=== PATIENT | female | born 1940 | race Caucasian/White ===

== ENCOUNTER → 2017-02-15 | Outpatient (CLI) | payer MEDICARE ==
--- NOTE | 2017-02-15 13:48 | WOMENS IMAGING REPORT ---
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 TECHNIQUE: Dual-Energy X-ray Absorptiometry (DEXA) of the AP Spine and Hip. LIMITATIONS: None. FINDINGS: LUMBAR SPINE: The bone mineral density (BMD) measured from L1-L4 in the AP projection correlates with a T-score of -1.2, which is osteopenia as defined by the World Health Organization. HIP: The bone mineral density (BMD) measured in the left hip correlates with a T-score of -2.4, which is o steopenia as defined by the World Health Organization. IMPRESSION: 1. LUMBAR SPINE: Osteopenia 2. HIP: Osteopenia COMMENT: The World Health Organization defines low BMD as follows: T-score: Normal: Greater than -1.0 Osteopenia: Between -1.0 and -2.5 Osteoporosis: Less than -2.5 without fractures Established osteoporosis: Less than -2.5 with fractures In general, you may wish to consider: Diagnosis Treatment Follow-up DEXA Normal BMD Prevention 2-3 years Osteopenia Prevention/Therapy 1-2 years Osteoporosis Therapy Yearly TECHNICAL DOCUMENTATION: JOB ID: [id number] [email or web address]- All Rights Reserved
== END ==
LOC: WI 13:02
PROVIDERS: ATTEND Student in an Organized Health Care Education/Training Program
DX: M81.8 Other osteoporosis without current pathological fracture (principal); M85.88 Other specified disorders of bone density and structure, other site
CPT/HCPCS: 77080

== ENCOUNTER 2017-05-05 08:07 | Day surgery (SDC) | payer MEDICARE ==
[~2017-05-05 08:07] MED LIST: CHONDR SU A NA/HYALUR INTRAOC KIT (SURGICARE) ONE; EPINEPHRINE INJ/PF 1 MG/1 ML AMPULE ONE; KETOROLAC TROMETHAMINE 0.45% 4 DROP/0.4 ML DROPERETTE OD PRN; LIDOCAINE 1% INJ-PF (10 MG/ML) 30 ML SDV ONE; TOBRAMYCIN SULFATE/DEXAMETH OPH OINTMENT 3.5 GM ONE
[2017-05-05] MEDS: TROPICAMIDE 1% OPH SOLN 3 ML OD PRN ×3 (08:28→08:57)
[2017-05-05] MEDS: CYCLOPENTOLATE 0.2%/PHENYLEPHRINE 1% OPH SOLN 2 ML OD PRN ×3 (08:28→08:57)
[2017-05-05] MEDS: BESIFLOXACIN HCL 0.6% OPH SUSP 5 ML BOTTLE OD PRN ×3 (08:29→09:28)
[2017-05-05] MEDS: TETRACAINE HCL 0.5% OPH SOLN 0.6 ML DROPERETTE OD PRN ×3 (08:30→09:07)
[2017-05-05] MEDS ORDERED: MIDAZOLAM 2 MG/2 ML INJ ONE ×2 (08:53→09:11)
== END 2017-05-05 10:08 | disposition home or self-care (01) ==
LOC: SC 08:07
PROVIDERS: ATTEND Ophthalmology
PROC: 089230Z Drainage of Right Anterior Chamber with Drainage Device, Percutaneous Approach (ICD-10-PCS; 2017-05-05)
PROC: 08RJ3JZ Replacement of Right Lens with Synthetic Substitute, Percutaneous Approach (ICD-10-PCS; principal; 2017-05-05 09:00)
DX: H25.11 Age-related nuclear cataract, right eye (principal); Z79.899 Other long term (current) drug therapy; M19.90 Unspecified osteoarthritis, unspecified site; H40.1132 Primary open-angle glaucoma, bilateral, moderate stage; F41.9 Anxiety disorder, unspecified; F32.9 Major depressive disorder, single episode, unspecified
CPT/HCPCS: 0191T; 66984; 142; C1783; J0171; J2250; J3490; V2630

== ENCOUNTER 2017-05-19 07:23 | Day surgery (SDC) | payer MEDICARE ==
[~2017-05-19 07:23] MED LIST changes: -CHONDR SU A NA/HYALUR INTRAOC KIT (SURGICARE) ONE; -EPINEPHRINE INJ/PF 1 MG/1 ML AMPULE ONE; -KETOROLAC TROMETHAMINE 0.45% 4 DROP/0.4 ML DROPERETTE OD PRN; +KETOROLAC TROMETHAMINE 0.45% 4 DROP/0.4 ML DROPERETTE OS PRN; -LIDOCAINE 1% INJ-PF (10 MG/ML) 30 ML SDV ONE; -TOBRAMYCIN SULFATE/DEXAMETH OPH OINTMENT 3.5 GM ONE
[2017-05-19] MEDS ORDERED: EPINEPHRINE INJ/PF 1 MG/1 ML AMPULE ONE (07:37)
[2017-05-19] MEDS ORDERED: TOBRAMYCIN SULFATE/DEXAMETH OPH OINTMENT 3.5 GM ONE (07:37)
[2017-05-19] MEDS ORDERED: CHONDR SU A NA/HYALUR INTRAOC KIT (SURGICARE) ONE (07:38)
[2017-05-19] MEDS ORDERED: LIDOCAINE 1% INJ-PF (10 MG/ML) 30 ML SDV ONE (07:38)
[2017-05-19] MEDS: TETRACAINE HCL 0.5% OPH SOLN 0.6 ML DROPERETTE OS PRN ×3 (07:44→08:19)
[2017-05-19] MEDS: TROPICAMIDE 1% OPH SOLN 3 ML OS PRN ×3 (07:45→08:10)
[2017-05-19] MEDS: CYCLOPENTOLATE 0.2%/PHENYLEPHRINE 1% OPH SOLN 2 ML OS PRN ×3 (07:45→08:10)
[2017-05-19] MEDS: BESIFLOXACIN HCL 0.6% OPH SUSP 5 ML BOTTLE OS PRN ×3 (07:46→08:40)
[2017-05-19] MEDS ORDERED: FENTANYL CITRATE INJ/PF 100 MCG/2 ML AMPUL ONE (08:00)
[2017-05-19] MEDS ORDERED: MIDAZOLAM 2 MG/2 ML INJ ONE (08:00)
== END 2017-05-19 09:35 | disposition home or self-care (01) ==
LOC: SC 07:23
PROVIDERS: ATTEND Ophthalmology
PROC: 089330Z Drainage of Left Anterior Chamber with Drainage Device, Percutaneous Approach (ICD-10-PCS; 2017-05-19)
PROC: 08RK3JZ Replacement of Left Lens with Synthetic Substitute, Percutaneous Approach (ICD-10-PCS; principal; 2017-05-19 08:15)
DX: H25.12 Age-related nuclear cataract, left eye (principal); H40.1122 Primary open-angle glaucoma, left eye, moderate stage; M19.90 Unspecified osteoarthritis, unspecified site; F32.9 Major depressive disorder, single episode, unspecified; F41.9 Anxiety disorder, unspecified; M62.838 Other muscle spasm; Z79.899 Other long term (current) drug therapy; Z79.891 Long term (current) use of opiate analgesic; Z98.41 Cataract extraction status, right eye
CPT/HCPCS: 0191T; 66984; 142; C1783; J0171; J2250; J3010; J3490; V2630

== ENCOUNTER 2017-12-03 07:25 | Emergency (ER) | payer MEDICARE ==
--- NOTE | 2017-12-03 08:02 | ER Document Report ---
ED Extremity Problem, Upper - General Chief Complaint: Shoulder Injury Stated Complaint: LEFT SHOULDER PAIN Time Seen by Provider: 12/03/17 07:47 Mode of Arrival: Stretcher Notes: History of present illness-77 years old female who woke up this morning around 6 :00 was trying to get out of the bed and slipped and injured her left shoulder as well as right foot and left big toe. Did not fall to the ground. There were no head injury or loss of consciousness. Denies any neck pain neck stiffness. Denies any chest pain or chest injury. Denies any abdominal pain. Since the fall she could not move her left shoulder. Therefore EMS was called. EMS found her shoulder being dislocated anteriorly. They splinted her. On route was given total of 150 mg of fentanyl. On arrival she was drowsy and sleeping. Not in acute pain or distress. REVIEW OF SYSTEMS: CONSTITUTIONAL : Denies fever, chills, or sweats. Denies recent illness. EENT: Denies eye, ear, throat, or mouth pain or symptoms. Denies nasal or sinus congestion or discharge. Denies throat, tongue, or mouth swelling or difficulty swallowing. CARDIOVASCULAR: Denies chest pain. Denies palpitations or racing or irregular heart beat. Denies ankle edema. RESPIRATORY: Denies cough, cold, or chest congestion. Denies shortness of breath, difficulty breathing, or wheezing. GASTROINTESTINAL: Denies abdominal pain or distention. Denies nausea, vomiting , or diarrhea. Denies blood in vomitus, stools, or per rectum. Denies black, tarry stools. Denies constipation. GENITOURINARY: Denies difficulty urinating, painful urination, burning, frequency, blood in urine, or discharge. FEMALE GENITOURINARY: Denies vaginal bleeding, heavy or abnormal periods, irregular periods. Denies vaginal discharge or odor. MUSCULOSKELETAL: Denies back or neck pain or stiffness. Denies joint pain or swelling. SKIN: Denies rash, lesions or sores. HEMATOLOGIC : Denies easy bruising or bleeding. LYMPHATIC: Denies swollen, enlarged glands. NEUROLOGICAL: Denies confusion or altered mental status. Denies passing out or loss of consciousness. Denies dizziness or lightheadedness. Denies headache. Denies weakness or paralysis or loss of use of either side. Denies problems with gait or speech. Denies sensory loss, numbness, or tingling. Denies seizures. PSYCHIATRIC: Denies anxiety or stress. Denies depression, suicidal ideation, or homicidal ideation. ALL OTHER SYSTEMS REVIEWED AND NEGATIVE. PHYSICAL EXAMINATION: GENERAL: Well-appearing, well-nourished HEAD: Atraumatic, normocephalic. EYES: Pupils equal round and reactive to light, extraocular movements intact, conjunctiva are normal. ENT: Nares patent, oropharynx clear without exudates. Moist mucous membranes. No tenderness over the cervical spine. NECK: Normal range of motion, supple without lymphadenopathy LUNGS: Breath sounds clear to auscultation bilaterally and equal. No wheezes rales or rhonchi. HEART: Regular rate and rhythm without murmurs ABDOMEN: Soft, nontender, nondistended abdomen. No guarding, no rebound. No masses appreciated. Female : deferred Musculoskeletal: Right shoulder shows humeral head sitting just anterior to the shoulder joint. Which was tender on palpation even though she is drowsy. Right foot mid portion shows bluish black discoloration and tenderness. Left big toe has bluish discoloration and tender on palpation. Left knee has minor abrasion but able to flex and extend without discomfort. Ankles were normal no swelling or injury noted. No obvious injury to the hip noted she was able to flex and extend. NEUROLOGICAL: Cranial nerves grossly intact. Normal speech, normal gait. Normal sensory, motor exams PSYCH: Normal mood, normal affect. SKIN: Warm, Dry, normal turgor, no rashes or lesions noted. Dictation was performed using [employer] voice recognition software history of present illness- TRAVEL OUTSIDE OF THE [place] IN LAST 30 DAYS: No - HPI Patient complains to provider of: Injury, Pain, Shoulder Onset: Just prior to arrival Recent injury: Yes Where: Home, Indoors Severity of pain: Moderate Pain Level: 3 Context: Fall Associated symptoms: denies: None, Back pain, Chest pain/discomfort, Chills, Dizziness, Fainted, Fever, Hurts to breathe, Jaw pain, Nausea, Neck pain, Numbness, Seizure, Short of breath, Sweating, Tingling, Vomiting, Other Exacerbated by: denies: Nothing, Movement, Exertion Similar symptoms previously: No Recently seen / treated by doctor: No - Related Data Allergies/Adverse Reactions: No Known Allergies Allergy (Verified 12/03/17 07:40) Past Medical History - Social History Smoking Status: Never Smoker Cigarette use (# per day): No Chew tobacco use (# tins/day): No Frequency of alcohol use: Rare Drug Abuse: denies: None, Bath salts, Cocaine, Heroin, Marijuana, Methamphetamine, Prescription drugs, Other Lives with: Family Family History: denies: None, Reviewed & Not Pertinent, Arthritis, CAD, COPD, CVA, DM, Hyperlipidemia, Hypertension, Malignancy, Thyroid Disfunction, Other - Past Medical History Cardiac Medical History: Denies: Hx Heart Attack, Hx Hypertension Pulmonary Medical History: Denies: Hx Asthma Neurological Medical History: Denies: Hx Cerebrovascular Accident, Hx Seizures GI Medical History: Denies: Hx Hepatitis, Hx Hiatal Hernia, Hx Ulcer Infectious Medical History: Denies: Hx Hepatitis Past Surgical History: Denies: Hx Hysterectomy, Hx Mastectomy, Hx Open Heart Surgery, Hx Pacemaker Review of Systems - Review of Systems Constitutional: denies: No symptoms reported, See HPI, Chills, Diaphoresis, Fever, Malaise, Weakness, Other, Weight gain, Weight loss, Recent illness EENT: denies: No symptoms reported, See HPI, Eye pain, Eye discharge, Blurred vision, Tearing, Double vision, Ear pain, Ear discharge, Nose pain, Nose congestion, Nose discharge, Sinus pressure, Sinus discharge, Throat pain, Difficulty swallowing, Throat swelling, Mouth pain, Mouth swelling, Dental problem, Vertigo, Other Cardiovascular: denies: No symptoms reported, See HPI, Chest pain, Palpitations , Heart racing, Orthopnea, Dyspnea, Syncope, Dizziness, Lightheaded, Edema, Other, Paroxysmal Nocturnal Dysp Respiratory: denies: No symptoms reported, See HPI, Cough, Hurts to breathe, Hemoptysis, Short of breath, Sputum, Stridor, Wheezing, Other Gastrointestinal: denies: No symptoms reported, See HPI, Abdomen distended, Abdominal pain, Diarrhea, Nausea, Vomiting, Constipation, Blood streaked bowels , Poor appetite, Poor fluid intake, Blood in vomit, Black stools, Rectal bleeding, Last bowel movement, Fecal incontinence, Other Genitourinary: denies: No symptoms reported, See HPI, Burning, Dysuria, Discharge, Frequency, Flank pain, Hematuria, Incontinence, Pain, Urgency, Retention, Other Musculoskeletal: See HPI Skin: denies: No symptoms reported, See HPI, Change in color, Change in hair/ nails, Dryness, Lesions, Lumps, Rash, Other Physical Exam - Vital signs Vitals: Temp Pulse Resp BP Pulse Ox 98.3 F 72 16 160/86 H 99 12/03/17 07:34 12/03/17 07:34 12/03/17 07:34 12/03/17 07:34 12/03/17 07:34 - Notes Notes: Dictated Course - Vital Signs Vital signs: Temp Pulse Resp BP Pulse Ox 98.3 F 72 16 160/86 H 99 12/03/17 07:34 12/03/17 07:34 12/03/17 07:34 12/03/17 07:34 12/03/17 07:34 - Diagnostic Test Radiology reviewed: Reports reviewed - X-ray of the shoulder after reduction was reported by radiologist as normal Left toe shows proximal phalangeal fracture Right foot normal x-ray reported by radiologist Procedures - Joint Reduction/Fracture Care Left Shoulder Time completed: 07:15 Consent obtained: No - Emergent Conscious sedation: No Pre-procedure NV exam: No Fracture: Other - No fractures Manipulation comment: Externally rotated flexed abducted and extended. The shoulder was in Post-procedure NV exam: Yes Post-reduction x-ray: Joint reduced - Left shoulder reduction. Patient was relaxed by 150 mg of fentanyl given by the EMS. On arrival there was slight prominence of the left shoulder therefore the shoulder was abducted and rotated. Shoulder joint fell into the joint cavity completely without any complication. Complications: No Discharge - Discharge Clinical Impression: Shoulder dislocation Qualifiers: Encounter type: initial encounter Laterality: left Qualified Code(s): S43.005A - Unspecified dislocation of left shoulder joint, initial encounter Fracture of toe of left foot Qualifiers: Encounter type: initial encounter Toe: great toe Fracture type: closed Phalanx : proximal Fracture alignment: nondisplaced Qualified Code(s): S92.415A - Nondisplaced fracture of proximal phalanx of left great toe, initial encounter for closed fracture Contusion of foot, right Qualifiers: Encounter type: initial encounter Qualified Code(s): S90.31XA - Contusion of right foot, initial encounter Condition: Fair Disposition: HOME, SELF-CARE Instructions: Oral Narcotic Medication ([facility]), Shoulder Dislocation ([facility]) Prescriptions: Hydrocodone/Acetaminophen [Vicodin 5-300 mg Tablet] 1 each PO Q6HP PRN #20 tablet PRN Reason: Referrals: MATTHEW ALSTON, DO [Primary Care Provider] - Follow up as needed
--- NOTE | 2017-12-03 08:44 | RADIOLOGY REPORT (SQ) ---
EXAM DESCRIPTION: FOOT RIGHT 2 VIEWS COMPLETED DATE/TIME: 12/03/2017 8:24 am REASON FOR STUDY: Pain and injury COMPARISON: None. NUMBER OF VIEWS: Three views. TECHNIQUE: AP, lateral and oblique radiographic images acquired of the right foot. LIMITATIONS: None. FINDINGS: MINERALIZATION: Osteopenia. BONES: No acute fracture or dislocation. No worrisome bone lesions. JOINTS: No effusions. SOFT TISSUES: No soft tissue swelling. No foreign body. OTHER: No other significant finding. IMPRESSION: NEGATIVE STUDY OF THE RIGHT FOOT. NO RADIOGRAPHIC EVIDENCE OF ACUTE INJURY. TECHNICAL DOCUMENTATION: JOB ID: [id number] [employer]- All Rights Reserved Reading location - IP/workstation name: [email or web address]
--- NOTE | 2017-12-03 08:45 | RADIOLOGY REPORT (SQ) ---
EXAM DESCRIPTION: TOE LEFT COMPLETED DATE/TIME: 12/03/2017 8:24 am REASON FOR STUDY: Pain and injury COMPARISON: None. NUMBER OF VIEWS: Three views. TECHNIQUE: AP, lateral, and oblique images acquired of the left great toe LIMITATIONS: None. FINDINGS: MINERALIZATION: Osteopenia BONES: Nondisplaced fracture of the base of the distal phalanx of the great toe without articular ext ension JOINTS: No effusions. SOFT TISSUES: No soft tissue swelling. No foreign body. OTHER: No other significant finding. IMPRESSION: Nondisplaced fracture base of the distal phalanx great toe COMMENT: SITE OF TRAUMA/COMPLAINT MARKED/STAMP COMPLETED: None TECHNICAL DOCUMENTATION: JOB ID: [id number] [employer]- All Rights Reserved Reading location - IP/workstation name: [email or web address]
--- NOTE | 2017-12-03 08:46 | RADIOLOGY REPORT (SQ) ---
EXAM DESCRIPTION: SHOULDER LEFT 2 OR MORE VIEWS COMPLETED DATE/TIME: 12/03/2017 8:24 am REASON FOR STUDY: Dislocation COMPARISON: None. NUMBER OF VIEWS: Two views. TECHNIQUE: Internal and Y-view images acquired of the left shoulder. LIMITATIONS: None. FINDINGS: MINERALIZATION: Normal. BONES: No acute fracture or dislocation. No worrisome bone lesions. JOINTS: No dislocation. VISUALIZED LUNGS AND RIBS: No pneumothorax. No rib fracture. SOFT TISSUES: No radiopaque foreign body. OTHER: No other significant finding. IMPRESSION: NEGATIVE STUDY OF THE LEFT SHOULDER. NO RADIOGRAPHIC EVIDENCE OF ACUTE INJURY. TECHNICAL DOCUMENTATION: JOB ID: [id number] [employer]- All Rights Reserved Reading location - IP/workstation name: [email or web address]
[2017-12-03] MEDS ORDERED: HYDROCODONE/ACETAMINOPHEN 10-325 MG TABLET PO ONE (10:15)
[2017-12-03 10:58] VITALS: BP 156/78
== END 2017-12-03 11:02 | disposition home or self-care (01) ==
LOC: ER 07:25
PROC: 0RSKXZZ Reposition Left Shoulder Joint, External Approach (ICD-10-PCS; principal; 2017-12-03)
DX: S43.005A Unspecified dislocation of left shoulder joint, initial encounter (principal); S92.415A Nondisplaced fracture of proximal phalanx of left great toe, initial encounter for closed fracture; S90.31XA Contusion of right foot, initial encounter; W06.XXXA Fall from bed, initial encounter
CPT/HCPCS: 99284; 73620; 73030; 73660; 23650; L3650; A9270

== ENCOUNTER 2017-12-04 13:07 | Emergency (ER) | payer MEDICARE ==
--- NOTE | 2017-12-04 13:50 | ER Document Report ---
ED General - General Chief Complaint: Shoulder Pain Stated Complaint: SHOULDER INJURY Time Seen by Provider: 12/04/17 13:43 Mode of Arrival: Wheelchair Information source: Patient TRAVEL OUTSIDE OF THE [place] IN LAST 30 DAYS: No - HPI Onset: Yesterday Onset/Duration: Persistent Severity: Severe Pain Level: 5 Associated symptoms: None Exacerbated by: Movement Relieved by: Denies Similar symptoms previously: Yes Recently seen / treated by doctor: Yes - Related Data Allergies/Adverse Reactions: No Known Allergies Allergy (Verified 12/04/17 13:08) Past Medical History - General Information source: Patient - Social History Smoking Status: Unknown if Ever Smoked Cigarette use (# per day): No Frequency of alcohol use: None Drug Abuse: None Lives with: Family Family History: Other - hernia Patient has suicidal ideation: No Patient has homicidal ideation: No - Past Medical History Cardiac Medical History: Denies: Hx Heart Attack, Hx Hypertension Pulmonary Medical History: Denies: Hx Asthma Neurological Medical History: Denies: Hx Cerebrovascular Accident, Hx Seizures Renal/ Medical History: Denies: Hx Peritoneal Dialysis GI Medical History: Denies: Hx Hepatitis, Hx Hiatal Hernia, Hx Ulcer Musculoskeltal Medical History: Reports Hx Arthritis Infectious Medical History: Denies: Hx Hepatitis Past Surgical History: Reports: Hx Tonsillectomy. Denies: Hx Hysterectomy, Hx Mastectomy, Hx Open Heart Surgery, Hx Pacemaker Physical Exam - Extremities General upper extremity: Nontender Shoulder: Other - left clavicle ttp, ecchymosis
--- NOTE | 2017-12-04 14:26 | RADIOLOGY REPORT (SQ) ---
EXAM DESCRIPTION: CLAVICLE LEFT COMPLETED DATE/TIME: 12/04/2017 2:12 pm REASON FOR STUDY: history of dislocation, pain COMPARISON: None. NUMBER OF VIEWS: Two views. TECHNIQUE: Frontal and angled images were acquired of the left clavicle. LIMITATIONS: None. FINDINGS: MINERALIZATION: Normal. BONES: Acute fracture left mid 3rd clavicle, with over riding of fracture fragments by 2 cm. Visualized left scapula, humeral head, left upper ribs are intact. SOFT TISSUES: No obvious swelling or foreign body. OTHER: No other significant finding. IMPRESSION: Acute fracture left mid 3rd clavicle. TECHNICAL DOCUMENTATION: JOB ID: [id number] [employer]- All Rights Reserved Reading location - IP/workstation name: [email or web address]
--- NOTE | 2017-12-04 15:18 | ER Document Report ---
ED Medical Screen (RME) - General Chief Complaint: Shoulder Pain Stated Complaint: SHOULDER INJURY Time Seen by Provider: 12/04/17 13:43 Mode of Arrival: Wheelchair Information source: Patient Notes: pt presents to the ed with left clavicle pain, reports fall off bed yesterday, was evaluated in the ed and discharged home. today she hit her shoulder and now it hurts. xray yesterday negative. TRAVEL OUTSIDE OF THE [place] IN LAST 30 DAYS: No - Related Data Allergies/Adverse Reactions: No Known Allergies Allergy (Verified 12/04/17 13:08) Past Medical History - Social History Cigarette use (# per day): No Frequency of alcohol use: None Drug Abuse: None - Past Medical History Cardiac Medical History: Denies: Hx Heart Attack, Hx Hypertension Pulmonary Medical History: Denies: Hx Asthma Neurological Medical History: Denies: Hx Cerebrovascular Accident, Hx Seizures Renal/ Medical History: Denies: Hx Peritoneal Dialysis GI Medical History: Denies: Hx Hepatitis, Hx Hiatal Hernia, Hx Ulcer Musculoskeltal Medical History: Reports Hx Arthritis Infectious Medical History: Denies: Hx Hepatitis Past Surgical History: Reports: Hx Tonsillectomy. Denies: Hx Hysterectomy, Hx Mastectomy, Hx Open Heart Surgery, Hx Pacemaker Doctor's Discharge - Discharge Referrals: MATTHEW ALSTON DO [Primary Care Provider] - Follow up as needed
--- NOTE | 2017-12-04 15:21 | ER Document Report ---
ED General - General Chief Complaint: Shoulder Pain Stated Complaint: SHOULDER INJURY Time Seen by Provider: 12/04/17 13:43 Mode of Arrival: Ambulatory Information source: Patient Notes: 77-year-old female with history of osteoarthritis present with complaint of left clavicle and shoulder pain. Patient was seen yesterday in the emergency department after a fall out of her bed. At that time she was found to have a left shoulder dislocation. Patient had a successful reduction and post- reduction films which showed proper alignment. Patient states today she was walking when she hit her shoulder against the wall. She states at that time she had a severe burning pain along her left clavicle. She denies any new falls. She has been taking Bison for pain without relief. Patient is not currently in the sling that she was provided yesterday. TRAVEL OUTSIDE OF THE [place] IN LAST 30 DAYS: No - HPI Onset: Just prior to arrival Onset/Duration: Sudden Quality of pain: Burning, Throbbing Severity: Moderate Associated symptoms: None Exacerbated by: Movement Relieved by: Remaining still Similar symptoms previously: Yes Recently seen / treated by doctor: Yes - 12/03/17 - Related Data Allergies/Adverse Reactions: No Known Allergies Allergy (Verified 12/04/17 13:08) Past Medical History - General Information source: Patient - Social History Smoking Status: Unknown if Ever Smoked Cigarette use (# per day): No Frequency of alcohol use: None Drug Abuse: None Lives with: Family Family History: Reviewed & Not Pertinent, Other - hernia Patient has suicidal ideation: No Patient has homicidal ideation: No - Past Medical History Cardiac Medical History: Denies: Hx Heart Attack, Hx Hypertension Pulmonary Medical History: Denies: Hx Asthma Neurological Medical History: Denies: Hx Cerebrovascular Accident, Hx Seizures Renal/ Medical History: Denies: Hx Peritoneal Dialysis GI Medical History: Denies: Hx Hepatitis, Hx Hiatal Hernia, Hx Ulcer Musculoskeltal Medical History: Reports Hx Arthritis Infectious Medical History: Denies: Hx Hepatitis Past Surgical History: Reports: Hx Tonsillectomy. Denies: Hx Hysterectomy, Hx Mastectomy, Hx Open Heart Surgery, Hx Pacemaker Review of Systems - Review of Systems Notes: Patient denies fever, chills, nausea, vomiting, headache, ear pain, sore throat , cough, chest pain, shortness of breath, abdominal pain, back pain, dysuria. Physical Exam - Vital signs Vitals: Temp Pulse BP Pulse Ox 98.0 F 100 137/81 H 94 12/04/17 13:35 12/04/17 13:35 12/04/17 13:35 12/04/17 13:35 Interpretation: Normal - Notes Notes: PHYSICAL EXAMINATION: GENERAL: Well-appearing, well-nourished and in no acute distress. HEAD: Atraumatic, normocephalic. EYES: Pupils equal round and reactive to light, extraocular movements intact, conjunctiva are normal. ENT: Nares patent, oropharynx clear without exudates. Moist mucous membranes. NECK: Normal range of motion, supple without lymphadenopathy LUNGS: Breath sounds clear to auscultation bilaterally and equal. No wheezes rales or rhonchi. HEART: Regular rate and rhythm without murmurs ABDOMEN: Soft, nontender, nondistended abdomen. No guarding, no rebound. No masses appreciated. Female : deferred Musculoskeletal: Left clavicle tender to palpation, overlying ecchymosis. Left shoulder minimal range of motion secondary to pain. Radial pulse intact. No neuro deficits. NEUROLOGICAL: Cranial nerves grossly intact. Normal speech, normal gait. Normal sensory, motor exams PSYCH: Normal mood, normal affect. SKIN: Warm, Dry, normal turgor, no rashes or lesions noted. Course - Re-evaluation Re-evalutation: Clavicle X-Ray 12/04/17 13:44 IMPRESSION: Acute fracture left mid 3rd clavicle. 12/04/17 15:20 77-year-old female with a history of osteoarthritis presents for the second time in 2 days with complaint of left shoulder pain. Patient states that yesterday she took "a couple of sleeping pills" and missed the bed causing her to fall over. She was seen in the emergency department at that time and found to have a left shoulder dislocation. This was reduced successfully and the patient was discharged home with a sling. Patient states this morning she "hit my shoulder against the wall". She denies any falls. She has been taking Bison for pain without improvement. X-ray of the left clavicle today shows a left mid third clavicle fracture with overriding fragments of 2 cm. 12/04/17 16:03 Dr. Nation made aware of patient. He is happy to see her in the office in the next 3-5 days. - Vital Signs Vital signs: Temp Pulse Resp BP Pulse Ox 98.0 F 100 137/81 H 94 12/04/17 13:35 12/04/17 13:35 12/04/17 13:35 12/04/17 13:35 - Diagnostic Test Radiology reviewed: Image reviewed, Reports reviewed Discharge - Discharge Clinical Impression: Closed left clavicular fracture Qualifiers: Encounter type: initial encounter Clavicle location: shaft Fracture alignment: displaced Qualified Code(s): S42.022A - Displaced fracture of shaft of left clavicle, initial encounter for closed fracture Condition: Good Disposition: HOME, SELF-CARE Instructions: Fractured Clavicle ([facility]) Additional Instructions: Please follow-up with Dr. Nation from orthopedic surgery in the next 3-5 days. His number is on your discharge instructions. He is aware of you and your injury. Follow up with your physician tomorrow for further care or return to the ED IMMEDIATELY if symptoms worsen or new concerns occur. If you cannot afford to follow up with your primary care physician a list of low cost clinics have been provided at the end of your discharge papers as well. Your x-rays today show a fracture of your left clavicle. Please continue to ice the area. Please continue to take her home medication of hydrocodone. Please do not take hydrocodone and clonazepam simultaneously. This could lead to respiratory depression and . Referrals: MATTHEW ALSTON DO [Primary Care Provider] - Follow up as needed VICKI NATION MD [ACTIVE STAFF] - Follow up as needed
[2017-12-04 16:27] VITALS: BP 137/81
== END 2017-12-04 16:27 | disposition home or self-care (01) ==
LOC: ER 13:07
DX: S42.022A Displaced fracture of shaft of left clavicle, initial encounter for closed fracture (principal); W22.01XA Walked into wall, initial encounter; Y93.01 Activity, walking, marching and hiking; S43.005D Unspecified dislocation of left shoulder joint, subsequent encounter; W06.XXXD Fall from bed, subsequent encounter; Z98.890 Other specified postprocedural states
CPT/HCPCS: 99283; 73000; L3650

== ENCOUNTER 2017-12-18 11:42 | Inpatient (IN) | payer MEDICARE ==
[2017-12-18] MEDS ORDERED: ONDANSETRON HCL INJ/PF 4 MG/2 ML SDV IV ONE (11:58)
[2017-12-18] MEDS ORDERED: FENTANYL CITRATE INJ/PF 100 MCG/2 ML AMPUL IV ONE (11:58)
--- NOTE | 2017-12-18 12:01 | ER Document Report ---
ED Medical Screen (RME) - General Chief Complaint: Abdominal Pain Stated Complaint: LEFT SIDE PAIN Time Seen by Provider: 12/18/17 11:57 Notes: RAPID MEDICAL EVALUATION DISCLOSURE I have seen this patient as part of a Rapid Medical Evaluation and, if applicable, placed any initially appropriate orders. The patient will be seen and fully evaluated, including a full history and physical exam, by a provider ( in Main ED or Fast Track) when a room becomes available. 77-year-old female here with complaints of left flank pain ongoing for the past 2 days. Pain is nonradiating, constant, described as waxing and waning. She does not have any nausea vomiting diarrhea hematuria dysuria frequency hesitancy however has noticed that her urine is abnormally darker than usual. She has also noticed some constipation over the past day or few and has had to take a stool softener to help with this. She denies any prior history of kidney stones colitis diverticulitis however went to an urgent care earlier this morning and was sent here for further evaluation. They did not perform any diagnostic workup at the urgent care. EXAM Mild left upper greater than lower quadrant TTP Moderate left flank TTP No CVA tenderness TRAVEL OUTSIDE OF THE [place] IN LAST 30 DAYS: No - Related Data Allergies/Adverse Reactions: No Known Allergies Allergy (Verified 12/18/17 11:59) Past Medical History - Social History Chew tobacco use (# tins/day): No Frequency of alcohol use: None Drug Abuse: None - Past Medical History Cardiac Medical History: Denies: Hx Heart Attack, Hx Hypertension Pulmonary Medical History: Denies: Hx Asthma Neurological Medical History: Denies: Hx Cerebrovascular Accident, Hx Seizures Renal/ Medical History: Denies: Hx Peritoneal Dialysis GI Medical History: Denies: Hx Hepatitis, Hx Hiatal Hernia, Hx Ulcer Musculoskeltal Medical History: Reports Hx Arthritis Infectious Medical History: Denies: Hx Hepatitis Past Surgical History: Reports: Hx Tonsillectomy. Denies: Hx Hysterectomy, Hx Mastectomy, Hx Open Heart Surgery, Hx Pacemaker Physical Exam - Vital signs Vitals: Temp Pulse Resp BP Pulse Ox 98.2 F 90 18 123/71 96 12/18/17 11:44 12/18/17 11:44 12/18/17 11:44 12/18/17 11:44 12/18/17 11:44 Course - Vital Signs Vital signs: Temp Pulse Resp BP Pulse Ox 98.2 F 90 18 123/71 96 12/18/17 11:44 12/18/17 11:44 12/18/17 11:44 12/18/17 11:44 12/18/17 11:44
[2017-12-18 12:54] LABS: APPEARANCE,URINE CLEAR; BILIRUBIN,URINE NEGATIVE (NEGATIVE); COLOR,URINE YELLOW; GLUCOSE, URINE NEGATIVE (NEGATIVE); KETONES,URINE NEGATIVE (NEGATIVE); LEUKOCYTE ESTERASE,URINE TRACE (NEGATIVE); NITRITE,URINE NEGATIVE (NEGATIVE); PROTEIN,URINE NEGATIVE (NEGATIVE); URINE SPECIFIC GRAVITY 1.012; UROBILINOGEN,URINE NEGATIVE mg/dL (<2.0)
[2017-12-18 13:00] LABS: ABSOLUTE BASOPHILS # (AUTO) 0.1 10^3/uL (0.0-0.2); ABSOLUTE LYMPHOCYTES (AUTO) 1.2 10^3/uL (0.5-4.7); ABSOLUTE NEUT (AUTO) 10.2 10^3/uL (1.7-8.2); BASOPHILS % (AUTO) 0.4 % (0-2); EOSINOPHILS % (AUTO) 0.1 % (0-6); HEMATOCRIT 41.7 % (36.0-47.0); LYMPHOCYTES % (AUTO) 9.7 % (13-45); MEAN CORPUSCULAR HGB CONC 33.5 g/dL (32.0-36.0); MEAN CORPUSCULAR VOLUME 96 fl (80-97); MONOCYTES % (AUTO) 8.2 % (3-13); PLATELET COUNT 300 10^3/uL (150-450); RED BLOOD COUNT 4.37 10^6/uL (3.72-5.28); RED CELL DISTRIBUTION WIDTH 13.2 % (11.5-14.0); SEGMENTED NEUTROPHILS % (AUTO) 81.6 % (42-78); TOTAL CELLS COUNTED % (AUTO) 100 %; WHITE BLOOD COUNT 12.5 10^3/uL (4.0-10.5)
[2017-12-18 13:26] LABS: ALANINE AMINOTRANSFERASE 24 U/L (9-52); ALBUMIN 4.6 g/dL (3.5-5.0); ALKALINE PHOSPHATASE 86 U/L (38-126); ANION GAP 10 (5-19); ASPARTATE AMINO TRANSFERASE 28 U/L (14-36); BILIRUBIN,DIRECT 0.3 mg/dL (0.0-0.4); BILIRUBIN,TOTAL 0.8 mg/dL (0.2-1.3); BLOOD UREA NITROGEN 19 mg/dL (7-20); CARBON DIOXIDE 34 mmol/L (22-30); CHLORIDE 98 mmol/L (98-107); GLUCOSE 125 mg/dL (75-110); POTASSIUM 4.2 mmol/L (3.6-5.0); SODIUM 141.5 mmol/L (137-145); TOTAL PROTEIN 8.2 g/dL (6.3-8.2)
--- NOTE | 2017-12-18 13:42 | RADIOLOGY REPORT (SQ) ---
EXAM DESCRIPTION: CT LTD RENAL STONE PROTOCOL ON COMPLETED DATE/TIME: 12/18/2017 1:27 pm REASON FOR STUDY: L flank pain; eval stone colitis diverticulitis COMPARISON: None. TECHNIQUE: CT scan of the abdomen and pelvis performed without intravenous or oral contrast. Images reviewed with lung, soft tissue, and bone windows. Reconstructed coronal and sagittal MPR images revi ewed. All images stored on PACS. All CT scanners at this facility use dose modulation, iterative reconstruction, and/or weight based d osing when appropriate to reduce radiation dose to as low as reasonably achievable (ALARA). [facility]: Dose Right [facility]: CareDose [facility]: Dose Right [facility]: Teradose 4D [facility]: [employer] RADIATION DOSE: mGy. LIMITATIONS: None. FINDINGS: LOWER CHEST: Cardiac enlargement. No parenchymal findings in the lungs. NON-CONTRASTED LIVER, SPLEEN, ADRENALS: 1.5 cm in the left lobe of the liver. Spleen and adrenal gla nds without significant findings. PANCREAS: No masses. No peripancreatic inflammatory changes. GALLBLADDER: No identified stones by CT criteria. No inflammatory changes to suggest cholecystitis. RIGHT KIDNEY AND URETER: No suspicious masses. Assessment limited by lack of IV contrast. No signif icant calcifications. No hydronephrosis. Large extra renal pelvis. LEFT KIDNEY AND URETER: No suspicious masses. Assessment limited by lack of IV contrast. No signifi cant calcifications. No hydronephrosis or hydroureter. AORTA AND RETROPERITONEUM: No aneurysm. No retroperitoneal masses or adenopathy. BOWEL AND PERITONEAL CAVITY: No obvious masses or inflammatory changes. No free fluid. Pericolonic f at stranding and edema along the mid descending colon associated with diverticular. Diverticulitis. No perforation or abscess. APPENDIX: Normal. PELVIS, BLADDER, AND ABDOMINAL WALL:No abnormal masses. No free fluid. Bladder normal. BONES: No significant findings. OTHER: No other significant finding. IMPRESSION: Descending colon diverticulitis. COMMENT: Quality ID # [id number]: Final reports with documentation of one or more dose reduction techniques (e.g., Automated exposure control, adjustment of the mA and/or kV according to patient size, use of iterative reconstruction technique) TECHNICAL DOCUMENTATION: JOB ID: [id number] [employer]- All Rights Reserved Reading location - IP/workstation name: [email or web address]
--- NOTE | 2017-12-18 13:51 | ER Document Report ---
ED GI/ - General Chief Complaint: Abdominal Pain Stated Complaint: LEFT SIDE PAIN Time Seen by Provider: 12/18/17 11:57 Notes: Patient says that she was awakened from sleep about 4 AM Wednesday morning with pain in her left flan. That pain is remained in that location constantly ever since. She has not had any nausea or vomiting or diarrhea. Has never had this pain before. Denies any fevers. Has not had any UTI symptoms and no blood in urine. No history of kidney stones. No difficulty breathing or shortness of breath. Had some "indigestion" in the upper anterior chest this morning but went away with some bicarbonate of soda. Has never had any abdominal surgeries. No history of any gastrointestinal diseases. TRAVEL OUTSIDE OF THE [place] IN LAST 30 DAYS: No - Related Data Allergies/Adverse Reactions: No Known Allergies Allergy (Verified 12/18/17 11:59) Past Medical History - Social History Smoking Status: Never Smoker Chew tobacco use (# tins/day): No Frequency of alcohol use: None Drug Abuse: None Family History: Reviewed & Not Pertinent, Other - hernia Patient has suicidal ideation: No Patient has homicidal ideation: No - Past Medical History Cardiac Medical History: Denies: Hx Heart Attack, Hx Hypertension Pulmonary Medical History: Denies: Hx Asthma Neurological Medical History: Denies: Hx Cerebrovascular Accident, Hx Seizures GI Medical History: Denies: Hx Hepatitis, Hx Hiatal Hernia, Hx Ulcer Musculoskeltal Medical History: Reports Hx Arthritis Infectious Medical History: Denies: Hx Hepatitis Past Surgical History: Reports: Hx Tonsillectomy. Denies: Hx Abdominal Surgery Review of Systems - Review of Systems Notes: REVIEW OF SYSTEMS: CONSTITUTIONAL : Denies fever. EENT: Denies eye, ear, nose or mouth or throat pain or other symptoms. CARDIOVASCULAR: Denies chest pain. RESPIRATORY: Denies cough, chest congestion, or shortness of breath. GASTROINTESTINAL: See HPI. GENITOURINARY: Denies difficulty or painful urinating, urinary frequency, blood in urine. MUSCULOSKELETAL: Denies back or neck pain. Denies joint pain or swelling. Patient fell December 03 and fractured her left clavicle for which she still wears a sling. She has seen orthopedist in follow-up. SKIN: Denies rash or skin lesions. NEUROLOGICAL: Denies LOC or altered mental status. Denies headache. Denies sensory loss or motor deficits. ALL OTHER SYSTEMS REVIEWED AND NEGATIVE. Physical Exam - Vital signs Vitals: Temp Pulse Resp BP Pulse Ox 98.2 F 90 18 123/71 96 12/18/17 11:44 12/18/17 11:44 12/18/17 11:44 12/18/17 11:44 12/18/17 11:44 Interpretation: Normal - Notes Notes: PHYSICAL EXAMINATION: GENERAL: Well-appearing, in no acute distress. Appears uncomfortable. HEAD: Atraumatic, normocephalic. EYES: Pupils equal round and reactive to light, extraocular movements intact. ENT: oropharynx clear without exudates. Moist mucous membranes. NECK: Normal range of motion, supple. LUNGS: Breath sounds clear and equal bilaterally. HEART: Regular rate and rhythm without murmurs. ABDOMEN: Soft, tender left lower quadrant and into the left flank. No guarding or rebound. No masses. BACK: No tenderness throughout entire back. EXTREMITIES: Normal range of motion without pain. Patient's left arm is in a sling and she has tenderness over the clavicle. NEUROLOGICAL: Normal speech, normal gait. Normal sensory, motor, and reflex exams. Awake, alert, and oriented x3. Cranial nerves normal. PSYCH: Normal mood, normal affect. SKIN: Warm, dry, no rashes. Course - Vital Signs Vital signs: Temp Pulse Resp BP Pulse Ox 98.2 F 90 18 123/71 96 12/18/17 11:44 12/18/17 11:44 12/18/17 11:44 12/18/17 11:44 12/18/17 11:44 - Laboratory Result Diagrams: 12/18/17 12:27 12/18/17 12:27 Laboratory results interpreted by me: 12/18/17 12/18/17 12/18/17 12:27 12:27 12:27 WBC 12.5 H Seg Neutrophils % 81.6 H Lymphocytes % 9.7 L Absolute Neutrophils 10.2 H Carbon Dioxide 34 H Est GFR (Non-Af Amer) 51 L Glucose 125 H Ur Leukocyte Esterase TRACE H - Diagnostic Test Radiology reviewed: Image reviewed, Reports reviewed - CT scan shows descending colon diverticulitis. Discharge - Discharge Clinical Impression: Diverticulitis Condition: Stable Disposition: ADMITTED INPATIENT Admitting Provider: Hospitalist Unit Admitted: Medical Floor
[2017-12-18] MEDS ORDERED: ACETAMINOPHEN 325 MG TABLET PO PRN (14:13)
[2017-12-18] MEDS ORDERED: PROMETHAZINE HCL INJ 25 MG/1 ML VIAL IV PRN (14:13)
[2017-12-18] MEDS ORDERED: ONDANSETRON HCL INJ/PF 4 MG/2 ML SDV IV PRN (14:13)
[2017-12-18] MEDS ORDERED: MAG HYDROX/AL HYDROX/SIMETH SUSP 30 ML UDCUP PO PRN (14:13)
[2017-12-18] MEDS ORDERED: MORPHINE SULFATE 10 MG/ML INJ IV PRN ×3 (14:21→14:42)
[2017-12-18] MEDS ORDERED: ACETAMINOPHEN PO PRN (14:41)
[2017-12-18] MEDS ORDERED: HYDROCODONE PO PRN (14:41)
[2017-12-18] MEDS ORDERED: HYDROCODONE/ACETAMINOPHEN 5-325 MG TABLET PO PRN (14:46)
[2017-12-18] MEDS: NORMAL SALINE 1000 ML 1,000 ML IV PRN (15:23)
[2017-12-18] MEDS ORDERED: MAGNESIUM HYDROXIDE SUSP 30 ML UDCUP PO PRN (16:47)
--- NOTE | 2017-12-18 16:49 | PDOC H&P ---
History of Present Illness Patient complains of: Left abdominal pain History of Present Illness: CE ARZOLA is a 77 year old female with a past medical history significant only for arthritis and recent left clavicle fracture presented to the emergency department today with a complaint of left abdominal pain for 2 days. She states that she felt well Mikael evening when she went to bed but woke suddenly at approximately 4 AM with sharp left-sided abdominal pain associated with urge to defecate. She reports that she has had the sensation of constipation but has been able to have loose bowel movements. She denies fever, chills, body aches, chest pain, palpitations, dyspnea, orthopnea, nausea and vomiting. Evaluation in the emergency department revealed mildly elevated leukocytosis ( 12.5), an elevated bicarb, and a CT of the abdomen revealing descending colon diverticulitis. She is referred to the hospitalist service for admission. Past Medical History Cardiac Medical History: Denies: Congestive Heart Failure, Coronary Artery Disease, Myocardial Infarction, Hyperlipidema, Hypertension, Peripheral Vascular Disease Pulmonary Medical History: Denies: Asthma, Chronic Obstructive Pulmonary Disease (COPD) EENT Medical History: Reports: Cataracts Neurological Medical History: Reports: None Denies: Ischemic CVA, Seizures Endocrine Medical History: Reports: None Renal/ Medical History: Reports: None Malignancy Medical History: Reports: None GI Medical History: Reports: None Denies: Hepatitis, Hiatal Hernia Musculoskeltal Medical History: Reports: Arthritis Skin Medical History: Reports: None Psychiatric Medical History: Reports: None Traumatic Medical History: Reports: None Hematology: Reports: None Denies: Anemia, Sickle Cell Disease Infectious Medical History: Reports: None Past Surgical History Past Surgical History: Reports: Tonsillectomy Denies: Amputation, Hysterectomy, Mastectomy, Pacemaker Social History Information Source: Patient Lives with: Spouse/Significant other Smoking Status: Never Smoker Frequency of Alcohol Use: Rare Hx Recreational Drug Use: No Drugs: None Hx Prescription Drug Abuse: No - Advance Directive Resuscitation Status: Full Code Surrogate healthcare decision maker:: The patient's , Sandip Arzola. Family History Family History: Reviewed & Not Pertinent, Malignancy - Colon cancer, Other - hernia Parental Family History Reviewed: Yes Children Family History Reviewed: Yes Sibling(s) Family History Reviewed.: Yes Medication/Allergy Home Medications: Calcium Phosphate Trib/Vit D3 [Calcium Adult Gummies] 2 each PO DAILY 04/30/17 Ergocalciferol (Vitamin D2) [Vitamin D] 400 unit PO DAILY 04/30/17 RX: Vitamin B Complex 1 each PO DAILY 04/30/17 RX: Clonazepam 0.5 mg PO QHS 05/05/17 Loratadine/Pseudoephedrine [Loratadine-D 24hr Tablet] 1 each PO QAM PRN Hydrocodone/Acetaminophen [Vicodin 5-300 mg Tablet] 1 each PO Q6HP PRN #20 tablet 12/03/17 RX: Magnesium [Magnesium Gluconate] 200 mg PO DAILY 12/18/17 RX: Potassium 99 mg PO DAILY 12/18/17 Allergies/Adverse Reactions: No Known Allergies Allergy (Verified 12/18/17 11:59) Review of Systems Constitutional: ABSENT: chills, fever(s), headache(s), weight gain, weight loss Eyes: ABSENT: visual disturbances Ears: ABSENT: hearing changes Cardiovascular: ABSENT: chest pain, dyspnea on exertion, edema, orthropnea, palpitations Respiratory: ABSENT: cough, hemoptysis Gastrointestinal: PRESENT: as per HPI, abdominal pain. ABSENT: constipation, diarrhea, hematemesis, hematochezia, nausea, vomiting Genitourinary: ABSENT: dysuria, hematuria Musculoskeletal: PRESENT: other - Left clavicle fracture. ABSENT: joint swelling Integumentary: ABSENT: rash, wounds Neurological: ABSENT: abnormal gait, abnormal speech, confusion, dizziness, focal weakness, syncope Psychiatric: ABSENT: anxiety, depression, homidical ideation, suicidal ideation Endocrine: ABSENT: cold intolerance, heat intolerance, polydipsia, polyuria Hematologic/Lymphatic: ABSENT: easy bleeding, easy bruising Physical Exam Vital Signs: Temp Pulse Resp BP Pulse Ox 98.2 F 90 18 123/71 96 12/18/17 11:44 12/18/17 11:44 12/18/17 11:44 12/18/17 11:44 12/18/17 11:44 Intake & Output 12/17/17 12/18/17 12/19/17 06:59 06:59 06:59 Weight 58.4 kg General appearance: PRESENT: no acute distress, cooperative, well-developed, well-nourished Head exam: PRESENT: atraumatic, normocephalic Eye exam: PRESENT: conjunctiva pink, EOMI, PERRLA. ABSENT: scleral icterus Ear exam: PRESENT: normal external ear exam Mouth exam: PRESENT: moist, tongue midline Neck exam: ABSENT: carotid bruit, JVD, lymphadenopathy, thyromegaly Respiratory exam: PRESENT: clear to auscultation albert, symmetrical, unlabored. ABSENT: rales, rhonchi, wheezes Cardiovascular exam: PRESENT: RRR, +S1, +S2. ABSENT: diastolic murmur, rubs, systolic murmur Pulses: PRESENT: normal dorsalis pedis pul Vascular exam: PRESENT: normal capillary refill GI/Abdominal exam: PRESENT: normal bowel sounds, soft, tenderness - Left upper and lower quadrants. ABSENT: distended, guarding, mass, organolmegaly, rebound Rectal exam: PRESENT: deferred Extremities exam: PRESENT: full ROM. ABSENT: calf tenderness, clubbing, pedal edema Musculoskeletal exam: PRESENT: tenderness - Left clavicle; recent fracture Neurological exam: PRESENT: alert, awake, oriented to person, oriented to place , oriented to time, oriented to situation, CN II-XII grossly intact. ABSENT: motor sensory deficit Psychiatric exam: PRESENT: appropriate affect, normal mood. ABSENT: homicidal ideation, suicidal ideation Skin exam: PRESENT: dry, intact, warm. ABSENT: cyanosis, rash Results Laboratory Results: 12/18/17 12:27 12/18/17 12:27 12/18/17 12/18/17 12/18/17 12:27 12:27 12:27 WBC 12.5 H RBC 4.37 Hgb 14.0 Hct 41.7 MCV 96 MCH 32.0 MCHC 33.5 RDW 13.2 Plt Count 300 Seg Neutrophils % 81.6 H Lymphocytes % 9.7 L Monocytes % 8.2 Eosinophils % 0.1 Basophils % 0.4 Absolute Neutrophils 10.2 H Absolute Lymphocytes 1.2 Absolute Monocytes 1.0 Absolute Eosinophils 0.0 Absolute Basophils 0.1 Sodium 141.5 Potassium 4.2 Chloride 98 Carbon Dioxide 34 H Anion Gap 10 BUN 19 Creatinine 1.05 Est GFR ( Amer) > 60 Est GFR (Non-Af Amer) 51 L Glucose 125 H Calcium 10.0 Total Bilirubin 0.8 AST 28 ALT 24 Alkaline Phosphatase 86 Total Protein 8.2 Albumin 4.6 Lipase 53.0 Urine Color YELLOW Urine Appearance CLEAR Urine pH 7.0 Ur Specific [place] 1.012 Urine Protein NEGATIVE Urine Glucose (UA) NEGATIVE Urine Ketones NEGATIVE Urine Blood NEGATIVE Urine Nitrite NEGATIVE Ur Leukocyte Esterase TRACE H Urine WBC (Auto) 0 Urine RBC (Auto) 1 Impressions: Limited or Localized CT 12/18/17 11:57 IMPRESSION: Descending colon diverticulitis. Assessment & Plan - Diagnosis (1) Diverticulitis Is this a current diagnosis for this admission?: Yes Plan: The patient is admitted with left upper and lower quadrant abdominal pain. WBCs are mildly elevated to 12.5 CT of the abdomen reveals descending colon diverticulitis. Blood cultures pending. The patient will be admitted to the medical floor. She will be empirically treated with IV Cipro and metronidazole. We will provide gentle IV maintenance fluids. She is placed on a clear liquid diet. Antiemetics as needed. Tylenol and [place] as needed for pain. Morphine is available for breakthrough pain. (2) Leukocytosis Qualifiers: Leukocytosis type: bandemia Qualified Code(s): D72.825 - Bandemia Is this a current diagnosis for this admission?: Yes Plan: Secondary to diverticulitis; plan as above. (3) Fracture of left clavicle Is this a current diagnosis for this admission?: Yes Plan: The patient fell approximately 3 weeks ago and sustained a left clavicle fracture. Tylenol and [place] are available with pain. Continue wearing sling. (4) Difficulty sleeping Is this a current diagnosis for this admission?: Yes Plan: We will continue the patient's home dose clonazepam 0.5 mg p.o. nightly as needed insomnia. Fall precautions are advised as the patient reports that her fall resulting in clavicle fracture was secondary to sleeping medications. (5) Constipation Is this a current diagnosis for this admission?: Yes Plan: The patient reports recent constipation; likely related to [place] use prescribed proximally 3 weeks ago for clavicle fracture. We will place the patient on daily Colace. Milk of magnesia for unresolved constipation. Encourage p.o. fluids and ambulation as tolerated. - Time Time Spent: 50 to 70 Minutes Medications reviewed and adjusted accordingly: Yes Anticipated discharge: Home Within: within 72 hours - Inpatient Certification Based on my medical assessment, after consideration of the patient's comorbidities, presenting symptoms, or acuity I expect that the services needed warrant INPATIENT care.: Yes I certify that my determination is in accordance with my understanding of Medicare's requirements for reasonable and necessary INPATIENT services [42 CFR 412.3e].: Yes Medical Necessity: Need For IV Fluids, Need for IV Antibiotics
[2017-12-18] MEDS: METRONIDAZOLE 500 MG/NS RTU 100 ML IV SCH (18:52)
[2017-12-18] MEDS ORDERED: (PENDING PHARMACY ID) (Clonazepam [Clonazepam] 0.5 MG) PO SCH (22:00)
[2017-12-18] MEDS: CIPROFLOXACIN 400 MG/D5W RTU 400 MG/200 ML RTUPB IV SCH (22:19)
[2017-12-18] MEDS: CLONAZEPAM 1 MG TABLET PO SCH (22:20)
[2017-12-18] MEDS: HEPARIN SOD (PORCINE) 5,000 UNIT/ML 1 ML SYRINGE SUBCUT SCH (22:23)
[2017-12-19] MEDS: METRONIDAZOLE 500 MG/NS RTU 100 ML IV SCH ×5 (01:09→23:34)
[2017-12-19 05:11] LABS: ABSOLUTE BASOPHILS # (AUTO) 0.1 10^3/uL (0.0-0.2); ABSOLUTE EOSINOPHILS # (AUTO) 0.1 10^3/uL (0.0-0.6); ABSOLUTE LYMPHOCYTES (AUTO) 1.8 10^3/uL (0.5-4.7); ABSOLUTE MONOCYTES (AUTO) 0.7 10^3/uL (0.1-1.4); ABSOLUTE NEUT (AUTO) 6.6 10^3/uL (1.7-8.2); BASOPHILS % (AUTO) 0.6 % (0-2); EOSINOPHILS % (AUTO) 1.3 % (0-6); HEMATOCRIT 36.3 % (36.0-47.0); HEMOGLOBIN 12.1 g/dL (12.0-15.5); MEAN CORPUSCULAR HEMOGLOBIN 31.8 pg (27.0-33.4); MEAN CORPUSCULAR HGB CONC 33.2 g/dL (32.0-36.0); MEAN CORPUSCULAR VOLUME 96 fl (80-97); PLATELET COUNT 242 10^3/uL (150-450); RED BLOOD COUNT 3.79 10^6/uL (3.72-5.28); SEGMENTED NEUTROPHILS % (AUTO) 71.1 % (42-78); TOTAL CELLS COUNTED % (AUTO) 100 %; WHITE BLOOD COUNT 9.3 10^3/uL (4.0-10.5)
[2017-12-19 05:36] LABS: ANION GAP 10 (5-19); BLOOD UREA NITROGEN 13 mg/dL (7-20); CALCIUM 9.1 mg/dL (8.4-10.2); CARBON DIOXIDE 29 mmol/L (22-30); CHLORIDE 106 mmol/L (98-107); GLUCOSE 98 mg/dL (75-110); POTASSIUM 4.9 mmol/L (3.6-5.0); SODIUM 144.6 mmol/L (137-145)
[2017-12-19] MEDS: HEPARIN SOD (PORCINE) 5,000 UNIT/ML 1 ML SYRINGE SUBCUT SCH ×3 (05:36→22:18)
[2017-12-19] MEDS ORDERED: PANTOPRAZOLE SODIUM 40 MG VIAL IV SCH (10:00)
[2017-12-19] MEDS ORDERED: (PENDING PHARMACY ID) (Ergocalciferol (Vitamin D2) [Vitamin D] 400 UNIT) PO SCH (10:00)
[2017-12-19] MEDS ORDERED: DOCUSATE SODIUM 100 MG CAPSULE PO SCH (10:00)
[2017-12-19] MEDS ORDERED: CHOLECALCIFEROL (D3) 400 UNIT TABLET PO SCH (10:00)
[2017-12-19] MEDS: CIPROFLOXACIN 400 MG/D5W RTU 400 MG/200 ML RTUPB IV SCH ×2 (10:07→22:18)
[2017-12-19] MEDS: NORMAL SALINE 1000 ML 1,000 ML IV PRN (10:08)
--- NOTE | 2017-12-19 11:11 | PDOC PROGRESS REPORT ---
Subjective Progress Note for:: 12/19/17 Subjective:: The patient is a 77-year-old female with past medical history significant only for arthritis and recent left clavicle fracture who was admitted 12/17/17 for descending colon diverticulitis. Patient is seen on morning rounds. She is found ambulating in her room on room air. She reports that her pain is improved and is now only feeling discomfort with palpation of her left flank or with certain activities such as sneezing. She reports that she tolerated her clear liquid diet and some applesauce last night without increased pain, nausea, vomiting, diarrhea. She has had a formed bowel movement this morning. She requests to advance her diet today. Anticipate possible discharge tomorrow. Reason For Visit: DIVERTICULITIS Physical Exam Vital Signs: Temp Pulse Resp BP Pulse Ox 98.5 F 67 16 119/75 97 12/19/17 07:23 12/19/17 07:23 12/19/17 07:23 12/19/17 07:23 12/19/17 07:23 Intake & Output 12/18/17 12/19/17 12/20/17 06:59 06:59 06:59 Intake Total 828 Balance 828 General appearance: PRESENT: no acute distress, cooperative, thin, well- developed, well-nourished Head exam: PRESENT: atraumatic, normocephalic Eye exam: PRESENT: conjunctiva pink, EOMI, PERRLA. ABSENT: scleral icterus Ear exam: PRESENT: normal external ear exam Mouth exam: PRESENT: moist, tongue midline Neck exam: ABSENT: carotid bruit, JVD, lymphadenopathy, thyromegaly Respiratory exam: PRESENT: clear to auscultation albert, symmetrical, unlabored. ABSENT: rales, rhonchi, wheezes Cardiovascular exam: PRESENT: RRR, +S1, +S2. ABSENT: diastolic murmur, rubs, systolic murmur Pulses: PRESENT: normal dorsalis pedis pul Vascular exam: PRESENT: normal capillary refill GI/Abdominal exam: PRESENT: normal bowel sounds, soft, tenderness - LUQ/LLQ w/ palpation. ABSENT: distended, guarding, mass, organolmegaly, rebound Rectal exam: PRESENT: deferred Extremities exam: PRESENT: full ROM. ABSENT: calf tenderness, clubbing, pedal edema Neurological exam: PRESENT: alert, awake, oriented to person, oriented to place , oriented to time, oriented to situation, CN II-XII grossly intact. ABSENT: motor sensory deficit Psychiatric exam: PRESENT: appropriate affect, normal mood. ABSENT: homicidal ideation, suicidal ideation Skin exam: PRESENT: dry, intact, warm. ABSENT: cyanosis, rash Results Laboratory Results: 12/19/17 04:55 12/19/17 04:55 12/19/17 12/19/17 04:55 04:55 WBC 9.3 RBC 3.79 Hgb 12.1 Hct 36.3 MCV 96 MCH 31.8 MCHC 33.2 RDW 13.0 Plt Count 242 Seg Neutrophils % 71.1 Lymphocytes % 19.0 Monocytes % 8.0 Eosinophils % 1.3 Basophils % 0.6 Absolute Neutrophils 6.6 Absolute Lymphocytes 1.8 Absolute Monocytes 0.7 Absolute Eosinophils 0.1 Absolute Basophils 0.1 Sodium 144.6 Potassium 4.9 Chloride 106 Carbon Dioxide 29 Anion Gap 10 BUN 13 Creatinine 0.98 Est GFR ( Amer) > 60 Est GFR (Non-Af Amer) 55 L Glucose 98 Calcium 9.1 Impressions: Limited or Localized CT 12/18/17 11:57 IMPRESSION: Descending colon diverticulitis. Assessment & Plan - Diagnosis (1) Diverticulitis Is this a current diagnosis for this admission?: Yes Plan: Improved; patient reports decrease in pain and is tolerating diet. Leukocytosis has resolved and she remains afebrile. CT of the abdomen reveals descending colon diverticulitis. Blood cultures pending. The patient will be admitted to the medical floor. She will be empirically treated with IV Cipro and metronidazole. We will provide gentle IV maintenance fluids. Will advance diet as tolerated. Antiemetics as needed. Tylenol and [place] as needed for pain. Morphine is available for breakthrough pain. (2) Leukocytosis Qualifiers: Leukocytosis type: bandemia Qualified Code(s): D72.825 - Bandemia Is this a current diagnosis for this admission?: Yes Plan: Resolved. Secondary to diverticulitis; plan as above. (3) Fracture of left clavicle Is this a current diagnosis for this admission?: Yes Plan: Stable. The patient fell approximately 3 weeks ago and sustained a left clavicle fracture. Tylenol and [place] are available with pain. Continue wearing sling. (4) Difficulty sleeping Is this a current diagnosis for this admission?: Yes Plan: We will continue the patient's home dose clonazepam 0.5 mg p.o. nightly as needed insomnia. Fall precautions are advised as the patient reports that her fall resulting in clavicle fracture was secondary to sleeping medications. (5) Constipation Is this a current diagnosis for this admission?: Yes Plan: Improved; positive bm today. The patient reports recent constipation; likely related to [place] use prescribed proximally 3 weeks ago for clavicle fracture. We will place the patient on daily Colace. Milk of magnesia for unresolved constipation. Encourage p.o. fluids and ambulation as tolerated. - Time Time Spent with patient: 15-24 minutes Medications reviewed and adjusted accordingly: Yes Anticipated discharge: Home Within: within 24 hours - Plan Summary Plan Summary: Anticipate d/c to home tomorrow on p.o. Cipro and Flagyl.
[2017-12-19] MEDS: CLONAZEPAM 1 MG TABLET PO SCH (22:17)
[2017-12-20 05:02] LABS: ABSOLUTE BASOPHILS # (AUTO) 0.1 10^3/uL (0.0-0.2); ABSOLUTE EOSINOPHILS # (AUTO) 0.2 10^3/uL (0.0-0.6); ABSOLUTE LYMPHOCYTES (AUTO) 2.1 10^3/uL (0.5-4.7); ABSOLUTE MONOCYTES (AUTO) 0.6 10^3/uL (0.1-1.4); ABSOLUTE NEUT (AUTO) 3.7 10^3/uL (1.7-8.2); BASOPHILS % (AUTO) 0.8 % (0-2); EOSINOPHILS % (AUTO) 2.9 % (0-6); HEMATOCRIT 34.9 % (36.0-47.0); HEMOGLOBIN 11.7 g/dL (12.0-15.5); LYMPHOCYTES % (AUTO) 30.9 % (13-45); MEAN CORPUSCULAR HEMOGLOBIN 31.8 pg (27.0-33.4); MEAN CORPUSCULAR HGB CONC 33.6 g/dL (32.0-36.0); MEAN CORPUSCULAR VOLUME 95 fl (80-97); MONOCYTES % (AUTO) 9.2 % (3-13); PLATELET COUNT 235 10^3/uL (150-450); RED BLOOD COUNT 3.69 10^6/uL (3.72-5.28); RED CELL DISTRIBUTION WIDTH 13.1 % (11.5-14.0); SEGMENTED NEUTROPHILS % (AUTO) 56.2 % (42-78); TOTAL CELLS COUNTED % (AUTO) 100 %; WHITE BLOOD COUNT 6.7 10^3/uL (4.0-10.5)
[2017-12-20 05:34] LABS: ANION GAP 11 (5-19); BLOOD UREA NITROGEN 14 mg/dL (7-20); CALCIUM 8.9 mg/dL (8.4-10.2); CARBON DIOXIDE 25 mmol/L (22-30); CHLORIDE 110 mmol/L (98-107); GLUCOSE 95 mg/dL (75-110); POTASSIUM 4.1 mmol/L (3.6-5.0); SODIUM 146.1 mmol/L (137-145)
[2017-12-20] MEDS: METRONIDAZOLE 500 MG/NS RTU 100 ML IV SCH (05:52)
[2017-12-20] MEDS: HEPARIN SOD (PORCINE) 5,000 UNIT/ML 1 ML SYRINGE SUBCUT SCH (05:54)
[2017-12-20 08:50] VITALS: BP 131/60
--- NOTE | 2017-12-20 12:32 | PDOC DISCHARGE SUMMARY ---
General - Admit/Disc Date/PCP Admission Date/Primary Care Provider: 12/18/17 15:46 MATTHEW ALSTON, Discharge Date: 12/20/17 - Discharge Diagnosis (1) Diverticulitis Is this a current diagnosis for this admission?: Yes Summary: The patient was admitted with report of LUQ/LLQ abdominal pain x 3 days and leukocytosis of 12.5. CT of the abdomen revealed descending colon diverticulitis. She was placed on IV Cipro and Metronidazole, gentle IV fluids, and a clear liquid diet. Her leukocytosis resolved and pain improved. She was advanced to a low-residue diet which she tolerated well. She did not require antiemetics or pain medications during her stay. At time of discharge, she is in stable condition and tolerating a low-residue diet with minimal abdominal discomfort. She is provided handouts on diverticulitis and dietary recommendations. She is provided prescriptions for Ciprofloxacin and Metronidazole. She is advised to follow up with her primary care provider within 1 week. (2) Leukocytosis Is this a current diagnosis for this admission?: Yes Summary: Resolved; secondary to diverticulitis. (3) Fracture of left clavicle Is this a current diagnosis for this admission?: Yes Summary: Secondary to fall at home on 12/04/17. Patient reported she felt it may have been due to "taking too many sleeping pills." Home medication list included hydrocodone, oxycodone, clonazepam, and ambien. At discharge, she is recommended to discontinue oxycodone and ambien. Recommend further dose reductions/discontinuation of medications at follow up appointment with primary care provider. (4) Difficulty sleeping Is this a current diagnosis for this admission?: Yes (5) Constipation Is this a current diagnosis for this admission?: Yes Summary: Resolved. Continue colace twice daily as needed. - Additional Information Resuscitation Status: Full Code Discharge Diet: Other (Comments) - Low residue Discharge Activity: Activity As Tolerated, Slowly Increase Activity Prescriptions: Ciprofloxacin HCl [Cipro 500 mg Tablet] 500 mg PO BID #18 tablet Metronidazole [Flagyl] 500 mg PO Q8H #27 tablet Home Medications: Bupropion HCl [Bupropion HCl Sr] 100 mg PO BIDP PRN 12/19/17 Clonazepam [Klonopin 1 mg Tablet] 2 mg PO QHS 12/19/17 Cholecalciferol (Vitamin D3) [Vitamin D3 400 Unit Tablet] 400 unit PO DAILY tablet 12/20/17 Ciprofloxacin HCl [Cipro 500 mg Tablet] 500 mg PO BID #18 tablet 12/20/17 Clonazepam [Klonopin 1 mg Tablet] 0.5 mg PO QHS tablet 12/20/17 Docusate Sodium [Colace 100 mg Capsule] 100 mg PO DAILY capsule 12/20/17 Hydrocodone/Acetaminophen [Ecorse 5-325 mg Tablet] 1 tab PO Q6HP PRN #0 tablet Metronidazole [Flagyl] 500 mg PO Q8H #27 tablet 12/20/17 History of Present Illness History of Present Illness: CE ARZOLA is a 77 year old female with a past medical history significant only for arthritis and recent left clavicle fracture presented to the emergency department today with a complaint of left abdominal pain for 2 days. She states that she felt well Mikael evening when she went to bed but woke suddenly at approximately 4 AM with sharp left-sided abdominal pain associated with urge to defecate. She reports that she has had the sensation of constipation but has been able to have loose bowel movements. She denies fever, chills, body aches, chest pain, palpitations, dyspnea, orthopnea, nausea and vomiting. Evaluation in the emergency department revealed mildly elevated leukocytosis ( 12.5), an elevated bicarb, and a CT of the abdomen revealing descending colon diverticulitis. She is referred to the hospitalist service for admission. Physical Exam Vital Signs: Temp Pulse Resp BP Pulse Ox 98.3 F 80 20 129/62 H 96 12/20/17 04:31 12/20/17 04:31 12/20/17 04:31 12/20/17 04:31 12/20/17 04:31 Intake & Output 12/19/17 12/20/17 12/21/17 06:59 06:59 06:59 Intake Total 828 3649 Balance 828 3649 Weight 58.8 kg General appearance: PRESENT: no acute distress, well-developed, well-nourished Head exam: PRESENT: atraumatic, normocephalic Eye exam: PRESENT: conjunctiva pink, EOMI, PERRLA. ABSENT: scleral icterus Ear exam: PRESENT: normal external ear exam Mouth exam: PRESENT: moist, tongue midline Neck exam: ABSENT: carotid bruit, JVD, lymphadenopathy, thyromegaly Respiratory exam: PRESENT: clear to auscultation albert, symmetrical, unlabored. ABSENT: rales, rhonchi, wheezes Cardiovascular exam: PRESENT: RRR, +S1, +S2. ABSENT: diastolic murmur, rubs, systolic murmur Pulses: PRESENT: normal dorsalis pedis pul Vascular exam: PRESENT: normal capillary refill GI/Abdominal exam: PRESENT: normal bowel sounds, soft, tenderness - slight LUQ/ LLQ abdominal tenderness with palpation. ABSENT: distended, guarding, mass, organolmegaly, rebound Rectal exam: PRESENT: deferred Extremities exam: PRESENT: full ROM. ABSENT: calf tenderness, clubbing, pedal edema Neurological exam: PRESENT: alert, awake, oriented to person, oriented to place , oriented to time, oriented to situation, CN II-XII grossly intact. ABSENT: motor sensory deficit Psychiatric exam: PRESENT: appropriate affect, normal mood. ABSENT: homicidal ideation, suicidal ideation Skin exam: PRESENT: dry, intact, warm. ABSENT: cyanosis, rash Results Laboratory Results: 12/20/17 04:38 12/20/17 04:38 12/20/17 12/20/17 04:38 04:38 WBC 6.7 RBC 3.69 L Hgb 11.7 L Hct 34.9 L MCV 95 MCH 31.8 MCHC 33.6 RDW 13.1 Plt Count 235 Seg Neutrophils % 56.2 Lymphocytes % 30.9 Monocytes % 9.2 Eosinophils % 2.9 Basophils % 0.8 Absolute Neutrophils 3.7 Absolute Lymphocytes 2.1 Absolute Monocytes 0.6 Absolute Eosinophils 0.2 Absolute Basophils 0.1 Sodium 146.1 H Potassium 4.1 Chloride 110 H Carbon Dioxide 25 Anion Gap 11 BUN 14 Creatinine 0.95 Est GFR ( Amer) > 60 Est GFR (Non-Af Amer) 57 L Glucose 95 Calcium 8.9 Impressions: Limited or Localized CT 12/18/17 11:57 IMPRESSION: Descending colon diverticulitis. Qualifiers - * PATIENT BEING DISCHARGED WITH ANY OF THE FOLLOWING DIAGNOSIS: No Plan Discharge Plan: Discharge to home with self-care. Follow up with primary care provider within 1 week.
== END 2017-12-20 10:14 | disposition home or self-care (01) | DRG 392 ==
LOC: ER 11:42 → EH 15:46 → 3W 19:52
PROVIDERS: ADMIT Internal Medicine; ATTEND Internal Medicine
DX: K57.90 Diverticulosis of intestine, part unspecified, without perforation or abscess without bleeding (principal); D72.825 Bandemia; K59.00 Constipation, unspecified; S42.002D Fracture of unspecified part of left clavicle, subsequent encounter for fracture with routine healing; W19.XXXD Unspecified fall, subsequent encounter
CPT/HCPCS: 36415; 76380; 80048; 80053; 81001; 83690; 85025; 87040; 87086; 96374; 96375; 99285; J0744; J1644; J2405; J3010; J3490; J7030; S0164

== ENCOUNTER → 2018-06-13 | Outpatient (CLI) | payer MEDICARE ==
--- NOTE | 2018-06-13 14:49 | WOMENS IMAGING REPORT ---
EXAM DESCRIPTION: 3D SCREENING MAMMO BILAT COMPLETED DATE/TIME: 06/13/2018 11:43 am REASON FOR STUDY: BILATERAL SCREENING MAMMO 3D/Z12.31 Z12.31 ENCNTR SCREEN MAMMOGRAM FOR MALIGNANT NEOPLASM OF EDER COMPARISON: None. TECHNIQUE: Standard craniocaudal and mediolateral oblique views of each breast recorded using digita l acquisition and breast tomosynthesis. LIMITATIONS: None. FINDINGS: No masses, calcifications or architectural distortion. No areas of suspicion. Read with the assistance of CAD. .[facility] - R2 Cenova Version 1.3 .[facility] Imaging - R2 Cenova Version 1.3 .[facility] Imaging - R2 Cenova Version 2.4 .[facility]2 Cenova Version 2.4 .[facility] - R2 Field Service Engineer Version 9.2 IMPRESSION: NORMAL MAMMOGRAM. BIRADS 1. BREAST DENSITY: c. The breasts are heterogeneously dense, which may obscure small masses. BIRAD: 1 NEGATIVE RECOMMENDATION: ROUTINE SCREENING COMMENT: The patient has been notified of the results by letter per SA requirements. Additional no tification policies are in place for contacting patient with suspicious or incomplete findings. Quality ID #[id number]: The [employer] recommends an annual screening mammogram for women aged 40 years or over. This facility utilizes a reminder system to ensure that all patients receive reminder letters, and/or direct phone calls for appointments. This includes reminders for routine scr eening mammograms, diagnostic mammograms, or other Breast Imaging Interventions when appropriate. Th is patient will be placed in the appropriate reminder system. The [employer] (ACR) has developed recommendations for screening MRI of the breast s in certain patient populations, to be used in conjunction with mammography. Breast MRI surveillanc e may be appropriate for women with more than 20% lifetime risk of developing breast cancer as deter mined by genetic testing, significant family history of the disease, or history of mantle radiation f or Hodgkins Disease. ACR Practice Guidelines 2008. DBT Technology DBT is a type of tomographic mammography. With conventional mammography, overlapping breast tissue ma y make lesions difficult to detect, even with good compression. DBT uses an x-ray tube that rotates a round the breast, taking images at different angles. These images are then combined to create thin sl ices of the breast that the radiologist can view as a 3D reconstruction. The Gladit[employer] unit can perform full-field digital mammograms (2D imaging); or DBT (3D imaging); or both, in a combination mode that quickly performs both the mammogram and the tomosynthesis scan while the breast is still compressed. PQRS 6045F: Fluoroscopic imaging is not utilized for breast tomosynthesis. TECHNICAL DOCUMENTATION: FINDING NUMBER: (1) ASSESSMENT: (1) JOB ID: [id number] [employer]- All Rights Reserved Reading location - IP/workstation name: [facility]
== END ==
LOC: WI 11:05
PROVIDERS: ATTEND Internal Medicine Rheumatology
DX: Z12.31 Encounter for screening mammogram for malignant neoplasm of breast (principal)
CPT/HCPCS: 77063; 77067

== ENCOUNTER → 2018-06-24 | Outpatient (CLI) | payer MEDICARE ==
[2018-06-24 11:44] LABS: ALANINE AMINOTRANSFERASE 20 U/L (9-52); ALBUMIN 4.2 g/dL (3.5-5.0); ALKALINE PHOSPHATASE 65 U/L (38-126); ANION GAP 10 (5-19); ASPARTATE AMINO TRANSFERASE 27 U/L (14-36); BILIRUBIN,TOTAL 0.5 mg/dL (0.2-1.3); BLOOD UREA NITROGEN 21 mg/dL (7-20); CALCIUM 9.6 mg/dL (8.4-10.2); CARBON DIOXIDE 29 mmol/L (22-30); CHLORIDE 105 mmol/L (98-107); CHOLESTEROL 205.87 mg/dL (0-200); GLUCOSE 85 mg/dL (75-110); POTASSIUM 4.7 mmol/L (3.6-5.0); SODIUM 144.1 mmol/L (137-145); TOTAL PROTEIN 7.1 g/dL (6.3-8.2); TRIGLYCERIDES 90 mg/dL (<150)
[2018-06-24 11:59] LABS: DIRECT LDL 100 mg/dL (<100)
== END ==
LOC: OD 09:33
PROVIDERS: ATTEND Family Medicine
DX: Z13.1 Encounter for screening for diabetes mellitus (principal); Z13.220 Encounter for screening for lipoid disorders; Z79.899 Other long term (current) drug therapy
CPT/HCPCS: 36415; 80053; 80061

== ENCOUNTER 2018-07-02 08:43 | Emergency (ER) | payer MEDICARE ==
[2018-07-02 09:21] LABS: ABSOLUTE BASOPHILS # (AUTO) 0.1 10^3/uL (0.0-0.2); ABSOLUTE EOSINOPHILS # (AUTO) 0.1 10^3/uL (0.0-0.6); ABSOLUTE LYMPHOCYTES (AUTO) 1.2 10^3/uL (0.5-4.7); ABSOLUTE MONOCYTES (AUTO) 0.4 10^3/uL (0.1-1.4); BASOPHILS % (AUTO) 1.3 % (0-2); EOSINOPHILS % (AUTO) 1.2 % (0-6); HEMATOCRIT 41.3 % (36.0-47.0); HEMOGLOBIN 14.1 g/dL (12.0-15.5); LYMPHOCYTES % (AUTO) 25.4 % (13-45); MEAN CORPUSCULAR VOLUME 94 fl (80-97); MONOCYTES % (AUTO) 9.2 % (3-13); PLATELET COUNT 194 10^3/uL (150-450); RED CELL DISTRIBUTION WIDTH 13.2 % (11.5-14.0); SEGMENTED NEUTROPHILS % (AUTO) 62.9 % (42-78); TOTAL CELLS COUNTED % (AUTO) 100 %; WHITE BLOOD COUNT 4.7 10^3/uL (4.0-10.5)
--- NOTE | 2018-07-02 09:21 | ER Document Report ---
ED General - General Chief Complaint: Dizziness Stated Complaint: DIZZNESS Time Seen by Provider: 07/02/18 09:09 TRAVEL OUTSIDE OF THE [place] IN LAST 30 DAYS: No - HPI Notes: Patient is a 78-year-old female that presents to the emergency department for chief complaint of not feeling well. Patient states when she woke up this morning she was having a headache. She took Tylenol which gave her some relief. She now states her head feels "weird" and like it has a "lump" in it. She denies any numbness weakness or vision changes. She also states she felt nauseated and took 1 of her Nilda with no relief. She denies any vomiting abdominal pain or diarrhea. She denies any fevers or chills. She denies any cough congestion shortness of breath and chest pain. Past Medical History: Negative Past Surgical History: Negative Social History: Negative Family History: Reviewed and noncontributory for presenting illness Allergies: Reviewed, see documented allergy list. REVIEW OF SYSTEMS: CONSTITUTIONAL : No fever No chills No diaphoresis No recent illness EENT: No vision changes No congestion No sore throat CARDIOVASCULAR: No chest pain No palpitations RESPIRATORY: No shortness of breath No cough No difficulty breathing GASTROINTESTINAL: No abdominal pain nausea No vomiting No diarrhea GENITOURINARY: No dysuria No hematuria No difficulty urinating MUSCULOSKELETAL: No back pain No leg pain No arm pain SKIN: No rashes No lesions LYMPHATIC: No swollen, enlarged glands. NEUROLOGICAL: No lightheadedness headache No weakness No paresthesias PSYCHIATRIC: No anxiety No depression PHYSICAL EXAMINATION: Vital signs reviewed, nursing noted reviewed. GENERAL: Somnolent, well-nourished and in no acute distress. HEAD: Atraumatic, normocephalic. EYES: Eyes appear normal, extraocular movements intact, sclera anicteric, conjunctiva are normal. ENT: nares patent, oropharynx clear without exudates. Moist mucous membranes. NECK: Normal range of motion, supple without lymphadenopathy LUNGS: Breath sounds clear to auscultation bilaterally and equal. No wheezes rales or rhonchi. HEART: Regular rate and rhythm without murmurs ABDOMEN: Soft, nontender, normoactive bowel sounds. No rebound, guarding, or rigidity. No masses appreciated. EXTREMITIES: Nontender, good range of motion, no pitting or edema. NEUROLOGICAL: No focal neurological deficits. Moves all extremities spontaneously Motor and sensory grossly intact on exam. PSYCH: Normal mood, normal affect. SKIN: Warm, Dry, normal turgor, no rashes or lesions noted on exposed skin - Related Data Allergies/Adverse Reactions: No Known Allergies Allergy (Verified 07/02/18 09:09) Past Medical History - Social History Smoking Status: Never Smoker Family History: Reviewed & Not Pertinent, Other - hernia Patient has suicidal ideation: No Patient has homicidal ideation: No - Past Medical History Cardiac Medical History: Denies: Hx Congestive Heart Failure, Hx Coronary Artery Disease, Hx Heart Attack, Hx Hypercholesterolemia, Hx Hypertension, Hx Peripheral Vascular Disease Pulmonary Medical History: Denies: Hx Asthma, Hx COPD Neurological Medical History: Denies: Hx Cerebrovascular Accident, Hx Seizures Renal/ Medical History: Denies: Hx Peritoneal Dialysis GI Medical History: Denies: Hx Hepatitis, Hx Hiatal Hernia, Hx Ulcer Musculoskeletal Medical History: Reports Hx Arthritis Psychiatric Medical History: Reports: Hx Depression Infectious Medical History: Denies: Hx Hepatitis Past Surgical History: Reports: Hx Tonsillectomy. Denies: Hx Abdominal Surgery , Hx Hysterectomy, Hx Mastectomy, Hx Open Heart Surgery, Hx Pacemaker Review of Systems - Review of Systems Notes: Dictated Physical Exam - Vital signs Vitals: Temp Pulse Resp BP Pulse Ox 98.7 F 69 15 152/74 H 100 07/02/18 08:46 07/02/18 08:46 07/02/18 08:46 07/02/18 08:46 07/02/18 08:46 - Notes Notes: Dictated Course - Re-evaluation Re-evalutation: 07/02/18 09:20 Vitals reviewed. Nursing notes reviewed. Patient appears somnolent but is awake and talking. She is a very poor historian which limits my HPI. Family member in the room states he just had a stroke and is also unable to provide further information or current presentation. 07/02/18 12:00 Patient reevaluated and appears much more alert and oriented. She currently has no complaints. Her workup in the emergency room is unremarkable. CT scan of the brain shows no acute intracranial pathology. There is no urinary tract infection. Patient is tolerating oral intake. She will be discharged home in stable condition. She already has a appointment with her primary care provider on Wednesday which she will keep. She will return for new or worsening symptoms. Discharged stable. Laboratory 07/02/18 07/02/18 07/02/18 09:00 09:00 09:00 WBC 4.7 RBC 4.40 Hgb 14.1 Hct 41.3 MCV 94 MCH 32.0 MCHC 34.0 RDW 13.2 Plt Count 194 Seg Neutrophils % 62.9 Lymphocytes % 25.4 Monocytes % 9.2 Eosinophils % 1.2 Basophils % 1.3 Absolute Neutrophils 3.0 Absolute Lymphocytes 1.2 Absolute Monocytes 0.4 Absolute Eosinophils 0.1 Absolute Basophils 0.1 Sodium 141.3 Potassium 4.1 Chloride 104 Carbon Dioxide 28 Anion Gap 9 BUN 20 Creatinine 1.06 Est GFR ( Amer) > 60 Est GFR (Non-Af Amer) 50 L Glucose 97 Calcium 9.7 Total Bilirubin 0.7 Direct Bilirubin 0.1 Neonat Total Bilirubin Not Reportable Neonat Direct Bilirubin Not Reportable Neonat Indirect Bili Not Reportable AST 25 ALT 20 Alkaline Phosphatase 70 Troponin I < 0.012 Total Protein 6.7 Albumin 4.0 Urine Color Urine Appearance Urine pH Ur Specific [place] Urine Protein Urine Glucose (UA) Urine Ketones Urine Blood Urine Nitrite Urine Bilirubin Urine Urobilinogen Ur Leukocyte Esterase Urine WBC (Auto) Urine RBC (Auto) Urine Ascorbic Acid 07/02/18 11:00 WBC RBC Hgb Hct MCV MCH MCHC RDW Plt Count Seg Neutrophils % Lymphocytes % Monocytes % Eosinophils % Basophils % Absolute Neutrophils Absolute Lymphocytes Absolute Monocytes Absolute Eosinophils Absolute Basophils Sodium Potassium Chloride Carbon Dioxide Anion Gap BUN Creatinine Est GFR ( Amer) Est GFR (Non-Af Amer) Glucose Calcium Total Bilirubin Direct Bilirubin Neonat Total Bilirubin Neonat Direct Bilirubin Neonat Indirect Bili AST ALT Alkaline Phosphatase Troponin I Total Protein Albumin Urine Color COLORLESS Urine Appearance CLEAR Urine pH 5.0 Ur Specific [place] 1.004 Urine Protein NEGATIVE Urine Glucose (UA) NEGATIVE Urine Ketones NEGATIVE Urine Blood NEGATIVE Urine Nitrite NEGATIVE Urine Bilirubin NEGATIVE Urine Urobilinogen NEGATIVE Ur Leukocyte Esterase NEGATIVE Urine WBC (Auto) 0 Urine RBC (Auto) 0 Urine Ascorbic Acid NEGATIVE Head CT 07/02/18 09:18 IMPRESSION: Chronic white matter disease. No acute findings. EVIDENCE OF ACUTE STROKE: NO. - Vital Signs Vital signs: Temp Pulse Resp BP Pulse Ox 98.7 F 69 19 152/74 H 97 07/02/18 09:01 07/02/18 08:46 07/02/18 09:01 07/02/18 09:01 07/02/18 09:01 - Laboratory Result Diagrams: 07/02/18 09:00 07/02/18 09:00 Laboratory results interpreted by me: 07/02/18 09:00 Est GFR (Non-Af Amer) 50 L - EKG Interpretation by Me Additional EKG results interpreted by me: 07/02/18 09:21 Interpreted by myself [id number]: Normal sinus rhythm, rate 66, first-degree AV block with DC 236, LVH, mild ST depression V5 V6, no ST elevation Discharge - Discharge Clinical Impression: Malaise Headache Qualifiers: Headache type: unspecified Headache chronicity pattern: acute headache Intractability: not intractable Qualified Code(s): R51 - Headache Condition: Stable Disposition: HOME, SELF-CARE Instructions: Headache ([facility]) Additional Instructions: Please return to the emergency department if you have any worsening, or concern of your symptoms. Please return to the emergency department if you develop chest pain, difficulty breathing, severe abdominal pain, or ongoing vomiting. Please follow-up with your primary care physician in 2-3 days and any other recommended physicians. If prescribed, take all medications as directed. If you have any questions or concerns do not hesitate to return the emergency department for evaluation. [] Referrals: JOHANNE PERAZA MD [Primary Care Provider] - Follow up in 3-5 days
[2018-07-02 09:36] LABS: ALANINE AMINOTRANSFERASE 20 U/L (9-52); ALKALINE PHOSPHATASE 70 U/L (38-126); ANION GAP 9 (5-19); ASPARTATE AMINO TRANSFERASE 25 U/L (14-36); BILIRUBIN,DIRECT 0.1 mg/dL (0.0-0.4); BILIRUBIN,TOTAL 0.7 mg/dL (0.2-1.3); BLOOD UREA NITROGEN 20 mg/dL (7-20); CALCIUM 9.7 mg/dL (8.4-10.2); CARBON DIOXIDE 28 mmol/L (22-30); CHLORIDE 104 mmol/L (98-107); GLUCOSE 97 mg/dL (75-110); POTASSIUM 4.1 mmol/L (3.6-5.0); SODIUM 141.3 mmol/L (137-145); TOTAL PROTEIN 6.7 g/dL (6.3-8.2)
--- NOTE | 2018-07-02 09:53 | RADIOLOGY REPORT (SQ) ---
EXAM DESCRIPTION: CT HEAD WITHOUT COMPLETED DATE/TIME: 07/02/2018 9:43 am REASON FOR STUDY: dizzy COMPARISON: None. TECHNIQUE: Axial images acquired through the brain without intravenous contrast. Images reviewed wi th bone, brain and subdural windows. Additional sagittal and coronal reconstructions were generated. Images stored on PACS. All CT scanners at this facility use dose modulation, iterative reconstruction, and/or weight based d osing when appropriate to reduce radiation dose to as low as reasonably achievable (ALARA). [facility]: Dose Right [facility]: CareDose [facility]: Dose Right [facility]: Teradose 4D [facility]: [employer] RADIATION DOSE: CT Rad equipment meets quality standard of care and radiation dose reduction techniq ues were employed. CTDIvol: 53.2 mGy. DLP: 964 mGy-cm. mGy. LIMITATIONS: None. FINDINGS: VENTRICLES: Normal size and contour. CEREBRUM: No masses. No hemorrhage. No midline shift. No evidence for acute infarction. Moderate b ifrontal and biparietal chronic small vessel ischemic change with low attenuation in the hemispheric white matter. CEREBELLUM: No masses. No hemorrhage. No alteration of density. No evidence for acute infarction. EXTRAAXIAL SPACES: No fluid collections. No masses. ORBITS AND GLOBE: No intra- or extraconal masses. Post bilateral cataract surgery. CALVARIUM: No fracture. PARANASAL SINUSES: No fluid or mucosal thickening. SOFT TISSUES: No mass or hematoma. OTHER: No other significant finding. IMPRESSION: Chronic white matter disease. No acute findings. EVIDENCE OF ACUTE STROKE: NO. COMMENT: Quality ID # [id number]: Final reports with documentation of one or more dose reduction techniques (e.g., Automated exposure control, adjustment of the mA and/or kV according to patient size, use of iterative reconstruction technique) TECHNICAL DOCUMENTATION: JOB ID: [id number] [employer]- All Rights Reserved Reading location - IP/workstation name: [email or web address]
[2018-07-02 11:23] LABS: APPEARANCE,URINE CLEAR; BILIRUBIN,URINE NEGATIVE (NEGATIVE); COLOR,URINE COLORLESS; GLUCOSE, URINE NEGATIVE (NEGATIVE); KETONES,URINE NEGATIVE (NEGATIVE); LEUKOCYTE ESTERASE,URINE NEGATIVE (NEGATIVE); NITRITE,URINE NEGATIVE (NEGATIVE); PROTEIN,URINE NEGATIVE (NEGATIVE); URINE SPECIFIC GRAVITY 1.004; UROBILINOGEN,URINE NEGATIVE mg/dL (<2.0)
[2018-07-02 12:03] VITALS: BP 141/79
--- NOTE | 2018-07-02 21:39 | EKG REPORT ---
SEVERITY:- ABNORMAL ECG - SINUS RHYTHM FIRST DEGREE AV BLOCK LEFT VENTRICULAR HYPERTROPHY : Confirmed by: Holly Sweeney MD 02-Jul-2018 21:39:14
== END 2018-07-02 12:11 | disposition home or self-care (01) ==
LOC: ER 08:43
DX: R51 Headache (principal); R53.81 Other malaise; R11.0 Nausea; R40.0 Somnolence; R90.82 White matter disease, unspecified; Z86.73 Personal history of transient ischemic attack (TIA), and cerebral infarction without residual deficits
CPT/HCPCS: 36415; 70450; 80053; 81001; 84484; 85025; 93005; 93010; 99284

== ENCOUNTER 2019-04-30 12:44 | Observation (INO) | payer MEDICARE ==
[2019-04-30 13:01] LABS: ABSOLUTE EOSINOPHILS # (AUTO) 0.1 10^3/uL (0.0-0.6); ABSOLUTE LYMPHOCYTES (AUTO) 1.2 10^3/uL (0.5-4.7); ABSOLUTE MONOCYTES (AUTO) 0.4 10^3/uL (0.1-1.4); ABSOLUTE NEUT (AUTO) 3.3 10^3/uL (1.7-8.2); EOSINOPHILS % (AUTO) 1.4 % (0-6); HEMATOCRIT 40.5 % (36.0-47.0); HEMOGLOBIN 13.7 g/dL (12.0-15.5); LYMPHOCYTES % (AUTO) 24.7 % (13-45); MEAN CORPUSCULAR HEMOGLOBIN 32.1 pg (27.0-33.4); MEAN CORPUSCULAR HGB CONC 33.9 g/dL (32.0-36.0); MEAN CORPUSCULAR VOLUME 95 fl (80-97); MONOCYTES % (AUTO) 8.3 % (3-13); PLATELET COUNT 220 10^3/uL (150-450); RED BLOOD COUNT 4.27 10^6/uL (3.72-5.28); RED CELL DISTRIBUTION WIDTH 13.4 % (11.5-14.0); SEGMENTED NEUTROPHILS % (AUTO) 64.6 % (42-78); TOTAL CELLS COUNTED % (AUTO) 100 %
[2019-04-30 13:04] LABS: INTERNATIONAL RATION (INR) 1.09; PROTHROMBIN TIME 14.1 SEC (11.4-15.4)
[2019-04-30 13:05] LABS: PARTIAL THROMBOPLASTIN TIME 26.5 SEC (23.5-35.8)
--- NOTE | 2019-04-30 13:11 | RADIOLOGY REPORT (SQ) ---
EXAM DESCRIPTION: CT HEAD WITHOUT COMPLETED DATE/TIME: 04/30/2019 12:58 pm REASON FOR STUDY: bed 11 stroke alert COMPARISON: CT brain 07/02/2018 TECHNIQUE: Axial images acquired through the brain without intravenous contrast. Images reviewed wi th bone, brain and subdural windows. Additional sagittal and coronal reconstructions were generated. Images stored on PACS. All CT scanners at this facility use dose modulation, iterative reconstruction, and/or weight based d osing when appropriate to reduce radiation dose to as low as reasonably achievable (ALARA). [facility]: Dose Right [facility]: CareDose [facility]: Dose Right [facility]: Teradose 4D [facility]: [employer] RADIATION DOSE: CT Rad equipment meets quality standard of care and radiation dose reduction techniq ues were employed. CTDIvol: 53.2 mGy. DLP: 937 mGy-cm. mGy. LIMITATIONS: None. FINDINGS: VENTRICLES: Normal size and contour. CEREBRUM: No CT evidence of acute large territory ischemic change, acute intracranial hemorrhage, mas s effect, or midline shift. There is moderate bifrontal and biparietal and bitemporal chronic small vessel ischemic change in the hemispheric white matter. Bilateral basal ganglia calcifications CEREBELLUM: No masses. No hemorrhage. No alteration of density. No evidence for acute infarction. EXTRAAXIAL SPACES: No fluid collections. No masses. ORBITS AND GLOBE: No intra- or extraconal masses. Post bilateral cataract surgery CALVARIUM: No fracture. PARANASAL SINUSES: No fluid or mucosal thickening. SOFT TISSUES: No mass or hematoma. OTHER: No other significant finding. IMPRESSION: Chronic white matter disease. No acute findings EVIDENCE OF ACUTE STROKE: NO. COMMENT: Pertinent findings on the imaging study reported as a CRITICAL RESULT to ZACKERY FITZPATRICK at13:00 on 04/30/2019. Category of Critical Result: CT stroke alert Quality ID # [id number]: Final reports with documentation of one or more dose reduction techniques (e.g., Au tomated exposure control, adjustment of the mA and/or kV according to patient size, use of iterative reconstruction technique) TECHNICAL DOCUMENTATION: JOB ID: [id number] [employer]- All Rights Reserved Reading location - IP/workstation name: [email or web address]
--- NOTE | 2019-04-30 13:17 | ER Document Report ---
ED Neuro Symptoms/Deficit - General Chief Complaint: S/S of Possible Stroke Stated Complaint: POSSIBLE STROKE Time Seen by Provider: 04/30/19 12:56 TRAVEL OUTSIDE OF THE [place] IN LAST 30 DAYS: No - HPI Notes: This is an 78-year-old female who presents today with a complaint of gradual onset headache, and trouble speaking. Patient was last seen normal around 9:00. She states that she woke up with a headache. Patient also states that she has not been feeling well the past few days. She states that she felt weak all over and had some trouble with his speech. She seems that the symptoms have since improved. EMS reports that she was having difficulty with his speech but otherwise had no other strokelike symptoms prior to evaluation. She denies any chest pain. She denies any fever or chills. She describes her symptoms as moderate. Symptoms have improved significantly. She denies any trauma. She denies any recent illness. - Related Data Allergies/Adverse Reactions: No Known Allergies Allergy (Verified 07/02/18 09:09) Past Medical History - General Information source: Patient - Social History Smoking Status: Former Smoker Frequency of alcohol use: None Drug Abuse: None Lives with: Family Family History: Reviewed & Not Pertinent, Other - hernia - Past Medical History Cardiac Medical History: Denies: Hx Congestive Heart Failure, Hx Coronary Artery Disease, Hx Heart Attack, Hx Hypercholesterolemia, Hx Hypertension, Hx Peripheral Vascular Disease Pulmonary Medical History: Denies: Hx Asthma, Hx COPD Neurological Medical History: Denies: Hx Cerebrovascular Accident, Hx Seizures Renal/ Medical History: Denies: Hx Peritoneal Dialysis GI Medical History: Denies: Hx Hepatitis, Hx Hiatal Hernia, Hx Ulcer Musculoskeletal Medical History: Reports Hx Arthritis Psychiatric Medical History: Reports: Hx Depression Infectious Medical History: Denies: Hx Hepatitis Past Surgical History: Reports: Hx Tonsillectomy. Denies: Hx Abdominal Surgery, Hx Hysterectomy, Hx Mastectomy, Hx Open Heart Surgery, Hx Pacemaker Review of Systems - Review of Systems Constitutional: denies: Fever, Malaise Cardiovascular: denies: Chest pain, Palpitations Gastrointestinal: denies: Abdominal pain, Nausea Musculoskeletal: denies: Neck pain Neurological/Psychological: Weakness, Headaches, Speech impairment. denies: Paralysis, Numbness -: Yes All other systems reviewed and negative Physical Exam - Vital signs Interpretation: Hypertensive - General In distress: None - HEENT Head: Normocephalic, Atraumatic Eyes: Normal Pupils: PERRL - Respiratory Respiratory status: No respiratory distress Chest status: Nontender Breath sounds: Normal Chest palpation: Normal - Cardiovascular Rhythm: Regular Heart sounds: Normal auscultation Murmur: No - Abdominal Inspection: Normal Distension: No distension Bowel sounds: Normal Tenderness: Nontender Organomegaly: No organomegaly - Extremities General upper extremity: Normal inspection, Nontender, Normal color, Normal ROM, Normal temperature General lower extremity: Normal inspection, Nontender, Normal color, Normal ROM, Normal temperature. No: Aspen's sign - Neurological Neuro grossly intact: Yes Cognition: Normal - Nonfocal neurologic exam. There is no obvious motor, sensory or cerebellar deficits. Patient appears generally weak but no focal findings. Equal strength in all extremities. Orientation: AAOx4 [place] Coma Scale Eye Opening: Spontaneous [place] Coma Scale Verbal: Oriented [place] Coma Scale Motor: Obeys Commands Yeni Coma Scale Total: 15 Speech: Normal - Patient speaks very slowly but speech is clear. Cranial nerves: Normal Cerebellar coordination: Finger-nose rhombey Course - Re-evaluation Re-evalutation: 04/30/19 13:20 Differential diagnosis includes TIA versus generalized weakness versus intracranial bleed versus electrolyte abnormality. Patient would not be a candidate for TPA given her NIH stroke score is 0. Symptoms have resolved at this time. EKG shows normal sinus rhythm at 67 bpm. Normal axis. Normal intervals. No acute injury pattern. 04/30/19 14:03 Patient reevaluated. Patient is doing well. Nonfocal neurologic exam. 04/30/19 15:54 Patient reevaluated. Patient is doing well. Ambulated to the bathroom with no problems. Nonfocal neurologic exam. 04/30/19 16:29 Patient reevaluated. Nonfocal neurologic exam. Labs and imaging unremarkable. Will admit for TIA. Patient's care discussed with the hospitalist. Will admit. - Laboratory Result Diagrams: 04/30/19 12:47 04/30/19 12:47 ED NIH Stroke Scale - NIH Stroke Scale When completed:: Before Alteplase *: 1. NIH scale should be completed with appropriate accompanying assessment tools. *: 2. The NIH should reflect what the patient is capable of doing and should not be coached by the clinician. 1a. Level of Consciousness: 0=Alert;keenly responsive -: 1=Drowsy -: 2=Obtunded -: 3=Coma/unresponsive or reflex to noxious stimuli. 1a. Responses: 0 1b. Orientation Questions: a. What month is it? -: b. How old are you? -: 0=Answers both questions correctly. -: 1=Answers one question correctly or patient is intubated or has orotracheal trauma. -: 2=Answers neither question correctly. 1b. Responses: 0 1c. Response to commands: a. Open and close eyes? -: b. Engineering Design Supervisor and release hand? -: Credit is given despite weakness. Demonstration of task is permitted. Substitute command if hands cannot be used. -: 0=Performs both tasks correctly -: 1=Performs one task correctly -: 2=Performs neither task correctly 1c. Responses: 0 2. Gaze: Establish eye contact and instruct patient to "Follow my finger" -: 0=Normal -: 1=Partial gaze palsy. Gaze is abnormal in one or both eyes, but where forced deviation or total gaze paresis is not present. -: 2=Forced deviation or total gaze paresis. 2. Responses: 0 3. Visual [place]: Sees fingers in all four quadrants. -: 0=No visual loss. -: 1=Partial hemianopsia. -: 2=Complete hemianopsia. -: 3=Bilateral hemianopsia (including Cortical blindness) 3. Responses: 0 4. Facial Movement: Instruct patient to: -: a. Show me your teeth -: b. Raise your eyebrows -: c. Close your eyes -: d. Smile -: 0=Normal symmetrical movement -: 1=Minor paralysis (flattened nasolabial fold, asymmetry on smiling). -: 2=Partial paralysis (total or near total paralysis of lower face). -: 3=Complete paralysis of upper and lower face 4. Responses: 0 5. Motor functions (left arm): Alternate sides and extend each arm with palms down (90 degrees if sitting or 45 degrees for supine). -: 0=No drift;limb holds for full 10 seconds. -: 1=Drift; limb holds but drifts down before full 10 seconds, but does not hit bed. -: 2=Some effort against gravity; limb cannot get to or maintain position. -: 3=No effort against gravity; limb falls. -: 4=No movement. -: UN=Amputation, joint fusion, explain in comments. 5. Responses (left arm): 0 5. Motor Functions (right arm): Alternate sides and extend each arm with palms down (90 degrees if sitting or 45 degrees for supine). -: 0=No drift;limb holds for full 10 seconds. -: 1=Drift; limb holds but drifts down before full 10 seconds, but does not hit bed. -: 2=Some effort against gravity; limb cannot get to or maintain position. -: 3=No effort against gravity; limb falls. -: 4=No movement. -: UN=Amputation, joint fusion, explain in comments. 5. Responses (right arm): 0 6. Motor Functions (left leg): With patient lying supine, alternate sides and extend each leg (30 degrees always while supine). -: 0=No drift, leg holds position for full 5 seconds -: 1=Drift; leg falls before full 5 seconds but does not hit bed. -: 2=Some effort against gravity, leg falls to bed but some effort against gravity. -: 3=No effort against gravity, leg falls to bed immediately. -: 4=No movement. -: UN=Amputation, joint fusion; explain in comments. 6. Responses (left leg): 0 6. Motor Functions (right leg): With patient lying supine, alternate sides and extend each leg (30 degrees always while supine). -: 0=No drift, leg holds position for full 5 seconds -: 1=Drift; leg falls before full 5 seconds but does not hit bed. -: 2=Some effort against gravity, leg falls to bed but some effort against gravity. -: 3=No effort against gravity, leg falls to bed immediately. -: 4=No movement. -: UN=Amputation, joint fusion; explain in comments. 6. Responses (right leg): 0 7. Limb Ataxia: With eyes open instruct patient to: -: a. "Touch your finger to your nose". -: b. "Touch your heel to your hagen" -: 0=Absent -: 1=Present in one limb. -: 2=Present in two limbs. -: UN=Amputation or joint fusion; explain in comments. 7. Responses: 0 8. Sensory: Test sensation using pinprick or noxious stimuli. Test as many body parts as possible. -: 0=Normal;no sensory loss -: 1=Mile to moderate sensory loss (patient feels pin prick but is less sharp on affected side). -: 2=Severe or total sensory loss. 8. Responses: 0 9. Best Language: Instruct patient to: -: a. "Describe what you see in this picture." -: b. "Name the items in this picture." -: c. "Read these sentences." -: 0=No aphasia, normal -: 1=Mild to moderate aphasia. -: 2=Severe aphasia -: 3=Mute, global aphasia, no usable speech or auditory comprehension. 9. Responses: 0 10. Articulation, Dysarthia: Instruct patient to: -: "Read these words" or "Repeat these words" -: 0=Normal -: 1=Mild to moderate; patient may slur some words but can be understood without difficulty. -: 2=Severe; patients speech so slurred as to be unintelligible in the absence of dysphasia. -: UN=Intubated or other physical barrier, explain in comments. 10. Responses: 0 11. Extinction or inattention: 0=No abnormality -: 1= Visual, tactile, auditory, spatial, or personal inattention or extinction to bilateral simulation in one or the sensory modalities. -: 2=Profound eric-inattention or eric-inattention to more than one modality; does not recognize own hand. 11. Responses: 0 Total Score: 0 Discharge - Discharge Clinical Impression: TIA (transient ischemic attack) Condition: Good Disposition: ADMITTED INPATIENT Admitting Provider: Linda (Hospitalist) Unit Admitted: Telemetry
[2019-04-30 13:19] LABS: ALKALINE PHOSPHATASE 67 U/L (38-126); ANION GAP 8 (5-19); ASPARTATE AMINO TRANSFERASE 30 U/L (14-36); BILIRUBIN,DIRECT 0.1 mg/dL (0.0-0.4); BILIRUBIN,TOTAL 0.4 mg/dL (0.2-1.3); BLOOD UREA NITROGEN 19 mg/dL (7-20); CALCIUM 9.8 mg/dL (8.4-10.2); CARBON DIOXIDE 29 mmol/L (22-30); CHLORIDE 103 mmol/L (98-107); CREATINE KINASE 171 U/L (30-135); GLUCOSE 82 mg/dL (75-110); POTASSIUM 4.4 mmol/L (3.6-5.0); TOTAL PROTEIN 6.6 g/dL (6.3-8.2)
[2019-04-30 13:31] LABS: CREATINE KINASE MB 1.74 ng/mL (<4.55)
[2019-04-30 13:34] LABS: TROPONIN I < 0.012 ng/mL
[2019-04-30 16:16] LABS: APPEARANCE,URINE CLEAR; BILIRUBIN,URINE NEGATIVE (NEGATIVE); COLOR,URINE STRAW; GLUCOSE, URINE NEGATIVE (NEGATIVE); KETONES,URINE NEGATIVE (NEGATIVE); LEUKOCYTE ESTERASE,URINE NEGATIVE (NEGATIVE); NITRITE,URINE NEGATIVE (NEGATIVE); PROTEIN,URINE NEGATIVE (NEGATIVE); URINE SPECIFIC GRAVITY 1.011; UROBILINOGEN,URINE NEGATIVE mg/dL (<2.0)
[2019-04-30] MEDS ORDERED: NORMAL SALINE 1000 ML 1,000 ML IV PRN (16:30)
--- NOTE | 2019-04-30 16:44 | RADIOLOGY REPORT (SQ) ---
EXAM DESCRIPTION: Portable chest x-ray CLINICAL HISTORY: 78 years Female, . Stroke patient. COMPARISON: None. FINDINGS: . Mild cardiomegaly. No suspicious mediastinal widening. Mild hyperinflation. No overt acute lung abnormality on this over penetrated film. No suspicious pleural disease. IMPRESSION: Hyperinflation. No obvious acute findings. Overpenetrated film.
[2019-04-30 17:05] LABS: CHOLESTEROL 195.31 mg/dL (0-200); TRIGLYCERIDES 73 mg/dL (<150)
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
[2019-04-30 17:15] LABS: DIRECT LDL 89 mg/dL (<100)
[2019-04-30] MEDS ORDERED: ASPIRIN 325 MG TABLET PO ONE (17:30)
--- NOTE | 2019-04-30 17:35 | EKG REPORT ---
SEVERITY:- ABNORMAL ECG - SINUS ARRHYTHMIA, RATE [id number] AND PACS PROBABLE LEFT ATRIAL ABNORMALITY LEFT VENTRICULAR HYPERTROPHY : Confirmed by: Mick Coulter MD 30-Apr-2019 17:34:11
--- NOTE | 2019-04-30 19:06 | RADIOLOGY REPORT (SQ) ---
EXAM DESCRIPTION: MRI HEAD WITHOUT COMPLETED DATE/TIME: 04/30/2019 6:53 pm REASON FOR STUDY: TIA COMPARISON: None. TECHNIQUE: Multiplanar imaging includes non-contrasted T1, T2, FLAIR, and diffusion with ADC map seq uences. Images stored on PACS. LIMITATIONS: None. FINDINGS: ANATOMY: No anomalies. Normal vascular flow voids. Pituitary fossa normal. CSF SPACES: Atrophy induced prominence of ventricles and CSF spaces. CEREBRUM: High signal intensity lesions scattered throughout the white matter on FLAIR imaging with d istribution suggesting micro-vascular ischemic changes. No evidence of hemorrhage, mass, or extraaxi al fluid collection. POSTERIOR FOSSA: No signal alteration. No hemorrhage. No edema, masses or mass effect. Internal milton tory canals, cerebello-pontine angles, mastoids normal. DIFFUSION IMAGING: Negative for acute or sub-acute infarction. ORBITS: No masses. Globes normal. PARANASAL SINUSES: No fluid levels. Mucosa normal. OTHER: No other significant finding. IMPRESSION: Negative for acute or sub-acute infarction. EVIDENCE OF ACUTE STROKE: NO. TECHNICAL DOCUMENTATION: JOB ID: [id number] [employer]- All Rights Reserved Reading location - IP/workstation name: [employer]
[2019-04-30] MEDS ORDERED: ROPINIROLE HCL 1 MG TABLET PO PRN (22:29)
[2019-04-30] MEDS ORDERED: ZOLPIDEM TARTRATE 5 MG TABLET PO PRN (22:29)
[2019-04-30] MEDS ORDERED: DOCUSATE SODIUM 100 MG CAPSULE PO PRN (22:42)
[2019-04-30] MEDS: ACETAMINOPHEN 325 MG TABLET PO PRN (23:43)
[2019-05-01 05:23] LABS: HEMATOCRIT 39.4 % (36.0-47.0); HEMOGLOBIN 13.6 g/dL (12.0-15.5); MEAN CORPUSCULAR HEMOGLOBIN 32.9 pg (27.0-33.4); MEAN CORPUSCULAR HGB CONC 34.5 g/dL (32.0-36.0); MEAN CORPUSCULAR VOLUME 95 fl (80-97); PLATELET COUNT 208 10^3/uL (150-450); RED BLOOD COUNT 4.13 10^6/uL (3.72-5.28); RED CELL DISTRIBUTION WIDTH 13.3 % (11.5-14.0); WHITE BLOOD COUNT 6.1 10^3/uL (4.0-10.5)
[2019-05-01 05:42] LABS: ANION GAP 8 (5-19); BLOOD UREA NITROGEN 19 mg/dL (7-20); CALCIUM 9.2 mg/dL (8.4-10.2); CARBON DIOXIDE 24 mmol/L (22-30); CHLORIDE 107 mmol/L (98-107); GLUCOSE 91 mg/dL (75-110); POTASSIUM 4.1 mmol/L (3.6-5.0)
[2019-05-01] MEDS: ACETAMINOPHEN 325 MG TABLET PO PRN (05:53)
[2019-05-01] MEDS ORDERED: BUPROPION HCL 100 MG TABLET PO SCH (10:00)
[2019-05-01] MEDS ORDERED: KETOROLAC TROMETHAMINE INJ/PF 30 MG/1 ML SDV IV PRN ×2 (10:47→12:16)
[2019-05-01] MEDS: ASPIRIN 325 MG TABLET PO SCH (10:52)
[2019-05-01] MEDS: ENOXAPARIN SODIUM INJ 40 MG/0.4 ML DISP.SYRIN SUBCUT SCH (10:52)
[2019-05-01] MEDS ORDERED: ACETAMINOPHEN 325 MG TABLET PO PRN (12:14)
[2019-05-01] MEDS ORDERED: (PENDING PHARMACY ID) (Bupropion Hcl [Bupropion Hcl Sr] 100 MG) PO PRN (12:14)
[2019-05-01] MEDS ORDERED: (PENDING PHARMACY ID) (Diclofenac Sodium [Voltaren] 1 APPLIC) TOP PRN (12:14)
[2019-05-01] MEDS ORDERED: BUPROPION HCL 100 MG TABLET PO PRN (12:39)
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
[2019-05-01] MEDS: TRAMADOL HCL 50 MG TABLET PO SCH (21:26)
[2019-05-01] MEDS ORDERED: ZOLPIDEM TARTRATE 5 MG TABLET PO SCH (22:00)
[2019-05-01] MEDS ORDERED: (PENDING PHARMACY ID) (Zolpidem Tartrate [Ambien] 10 MG) PO SCH (22:00)
--- NOTE | 2019-05-01 23:11 | XCELERA REPORT ---
[address] [address] Transthoracic Echocardiogram Report Name: CE ARZOLA Age: 78 yrs Gender: Female : 1940 Patient Status: Inpatient Patient Location: [address] [place] [address] Study Date: 05/01/2019 05:43 PM Height: 63 in Weight: 132 lb BSA: 1.6 m2 Procedure: A two-dimensional transthoracic echocardiogram with color flow and Doppler was performed. Study Quality: Poor. Reason For Study: TIA History: TIA. Ordering Physician: KENYON SINGER Performed By: Alicia Aviles Interpretation Summary There is no obvious cardiac source of embolus noted on this transthoracic echocardiogram. Follow-up with a DERRICK is suggested if cardiac source is still suspected. The left ventricle is normal in size. There is normal left ventricular wall thickness. LV EF is 60% Left ventricular systolic function is normal. Doppler measurements suggest impaired left ventricular relaxation, which is associated with grade I/IV or mild diastolic dysfunction The left ventricular wall motion is normal. Cannot assess for thrombus,ASD , VSD , or PFO. The right ventricle is not well visualized secondary to technical limitations Right atrium not well visualized secondary to technical limitations The left atrial size is normal. There is no evidence of mitral valve prolapse. There is no mitral valve stenosis. There is a trace amount of mitral regurgitation There is no aortic valve stenosis There is a trace to mild amount of aortic regurgitation There is no tricuspid stenosis. Right ventricular systolic pressure is at the upper limits of normal RVSP is 230 mm of Hg , with RA mean of 10. There is a trace to mild amount of tricuspid regurgitation There is no pulmonic valvular stenosis. There is a trace amount of pulmonic regurgitation The aortic root is not well visualized but is probably normal size. The inferior vena cava was not visualized There is no pericardial effusion. There is no obvious cardiac source of embolus noted on this transthoracic echocardiogram. Follow-up with a DERRICK is suggested if cardiac source is still suspected MMode/2D Measurements & Calculations RVDd: 2.6 cm LVIDd: 3.3 cm FS: 32.5 % Ao root diam: 2.7 cm IVSd: 0.77 cm LVIDs: 2.2 cm EDV(Teich): 43.3 ml Ao root area: 5.5 cm2 LVPWd: 1.0 cm ESV(Teich): 16.4 ml LA dimension: 2.9 cm EF(Teich): 62.2 % Doppler Measurements & Calculations MV E max magalie: MV P1/2t max magalie: Ao V2 max: AI max magalie: 65.4 cm/sec 95.0 cm/sec 105.3 cm/sec 210.7 cm/sec MV A max magalie: MV P1/2t: 48.2 msec Ao max PG: AI max P.8 cm/sec MVA(P1/2t): 4.6 cm2 4.4 mmHg 17.8 mmHg MV E/A: 0.87 MV dec slope: AI dec slope: 197.2 cm/sec2 577.4 cm/sec2 AI P1/2t: MV dec time: 312.8 msec 0.18 sec LV V1 max PG: PA V2 max: PI end-d magalie: TR max magalie: 2.9 mmHg 82.8 cm/sec 111.3 cm/sec 225.9 cm/sec LV V1 max: PA max P.7 mmHg TR max P.9 cm/sec 20.4 mmHg AV P1/2t-pr_phl: MV P1/2t-pr_phl: 312.8 msec 48.4 msec Left Ventricle The left ventricle is normal in size. There is normal left ventricular wall thickness. LV EF is 60%. Left ventricular systolic function is normal. Doppler measurements suggest impaired left ventricular relaxation, which is associated with grade I/IV or mild diastolic dysfunction. The left ventricular wall motion is normal. Cannot assess for thrombus,ASD , VSD , or PFO. Right Ventricle The right ventricle is not well visualized secondary to technical limitations. Atria Right atrium not well visualized secondary to technical limitations. The left atrial size is normal. Mitral Valve There is no evidence of mitral valve prolapse. There is no mitral valve stenosis. There is a trace amount of mitral regurgitation. Aortic Valve There is no aortic valve stenosis. There is a trace to mild amount of aortic regurgitation. Tricuspid Valve There is no tricuspid stenosis. Right ventricular systolic pressure is at the upper limits of normal. RVSP is 230 mm of Hg , with RA mean of 10. There is a trace to mild amount of tricuspid regurgitation. Pulmonic Valve There is no pulmonic valvular stenosis. There is a trace amount of pulmonic regurgitation. Great Vessels The aortic root is not well visualized but is probably normal size. The inferior vena cava was not visualized. Effusions There is no pericardial effusion. Electronically signed by: Holly Sweeney 05/01/2019 11:11 PM CC: KENYON SINGER, Holly
[2019-05-02 07:00] LABS: HEMOGLOBIN 14.4 g/dL (12.0-15.5); MEAN CORPUSCULAR HEMOGLOBIN 32.3 pg (27.0-33.4); MEAN CORPUSCULAR HGB CONC 34.4 g/dL (32.0-36.0); MEAN CORPUSCULAR VOLUME 94 fl (80-97); PLATELET COUNT 224 10^3/uL (150-450); RED BLOOD COUNT 4.46 10^6/uL (3.72-5.28); RED CELL DISTRIBUTION WIDTH 13.5 % (11.5-14.0); WHITE BLOOD COUNT 7.7 10^3/uL (4.0-10.5)
[2019-05-02 07:31] LABS: ANION GAP 7 (5-19); BLOOD UREA NITROGEN 21 mg/dL (7-20); CARBON DIOXIDE 27 mmol/L (22-30); CHLORIDE 105 mmol/L (98-107); GLUCOSE 90 mg/dL (75-110); POTASSIUM 4.1 mmol/L (3.6-5.0)
[2019-05-02] MEDS: TRAMADOL HCL 50 MG TABLET PO SCH (09:47)
[2019-05-02] MEDS: ASPIRIN 325 MG TABLET PO SCH (09:48)
[2019-05-02] MEDS: ENOXAPARIN SODIUM INJ 40 MG/0.4 ML DISP.SYRIN SUBCUT SCH (09:48)
[2019-05-02] MEDS ORDERED: (PENDING PHARMACY ID) (Pramipexole Di-Hcl [Pramipexole Dihydrochloride] 0.125 MG) PO SCH (10:00)
[2019-05-02] MEDS ORDERED: PRAMIPEXOLE DI-HCL 0.25 MG TABLET PO SCH (10:00)
[2019-05-02 16:00] VITALS: BP 141/64
--- NOTE | 2019-05-02 18:58 | RADIOLOGY REPORT (SQ) ---
EXAM DESCRIPTION: CAROTID DOPPLER COMPLETED DATE/TIME: 05/01/2019 9:40 pm REASON FOR STUDY: TIA COMPARISON: None. TECHNIQUE: Grayscale ultrasound, Doppler velocity and spectra, and color Doppler images acquired of the extra-cranial carotid and vertebral arteries. Images stored on PACS. LIMITATIONS: None. FINDINGS: RIGHT CAROTID CCA Velocities: Within normal limits. ICA Velocities Peak systolic 0.83 m/s. End diastolic 0.21 m/s. Proximal ICA/CCA peak systolic ratio 1.2. Spectra normal. No significant plaque. LEFT CAROTID CCA Velocities: Within normal limits. ICA Velocities Peak systolic 29 m/s. End diastolic 0.21 m/s. Proximal ICA/CCA peak systolic ratio 1.6. Spectra normal. No significant plaque. VERTEBRAL ARTERIES: Antegrade flow. Normal waveforms. SUBCLAVIAN ARTERIES: No finding. OTHER: No other significant finding. IMPRESSION: NO HEMODYNAMICALLY SIGNIFICANT STENOSIS. COMMENT: Quality ID #[id number]: Velocity criteria are extrapolated from the diameter data as defined by t he Society of Radiologists in Ultrasound Consensus Conference. Radiology 2003: 229; 340-346. TECHNICAL DOCUMENTATION: JOB ID: [id number] [employer]- All Rights Reserved Reading location - IP/workstation name: [email or web address]
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
== END 2019-05-02 16:43 | disposition home or self-care (01) ==
LOC: ER 12:44 → EH 16:51 → INTOOBSV 16:51 → 3S 18:44
PROVIDERS: ADMIT Family Medicine; ATTEND Family Medicine
DX: G45.9 Transient cerebral ischemic attack, unspecified (principal); G25.81 Restless legs syndrome; G47.00 Insomnia, unspecified; M19.90 Unspecified osteoarthritis, unspecified site; F32.9 Major depressive disorder, single episode, unspecified; R51 Headache; R47.9 Unspecified speech disturbances; R40.2412 Glasgow coma scale score 13-15, at arrival to emergency department; R29.700 NIHSS score 0
CPT/HCPCS: 93005; 99285; 36415 ×3; 82553; 82962; 82550; 85025; 85027 ×2; 85610; 85730; 80048 ×2; 80053; 81001; 84484; 83036; 80061; 93306; 93880; 70551; 71045; 70450; 93010; 97116; 97163; 92523; 97165; G0378 ×4; A9270 ×11; J1885; J1650 ×2; J7030; J3490